=== PATIENT | male | born 1930 | race Caucasian/White ===

== ENCOUNTER 2016-09-03 07:00 | Inpatient (IN) | payer OTHER ==
[2016-09-03] MEDS ORDERED: fentaNYL 100 MCG/2 ML INJ IVP ONE ×3 (07:24→13:42)
--- NOTE | 2016-09-03 09:25 | EDPHY ---
H & P Stated Complaint: Mechanical fall. Thoracic back pain. 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 He states that he got up to use the bathroom and on the way back to his bedroom he fell backwards, landing on his back. He had the immediate onset of mid thoracic back pain. He was unable to get up off of the floor. He was able to pull himself along the floor until he could reach his emergency call button. He is not sure why he fell but he recalls falling. There was no loss of consciousness , no syncope per his report. He had a syncopal episode in June of 2016 and was admitted at that time. He denies headache, neck pain, numbness, weakness, loss of control of his bowels or his bladder. He does not have chest pain, does not feel short of breath, and has not had palpitations. He denies lower extremity swelling. He has no history of venous thromboembolism. REVIEW OF SYSTEMS: A ten point review of systems was performed and is negative with the exception of the items mentioned in the HPI. Source: Patient, Family Exam Limitations: No limitations - Medical/Surgical History Hx Asthma: No Hx Chronic Respiratory Disease: No Hx Diabetes: No Hx Cardiac Disease: No Hx Renal Disease: No Hx Cirrhosis: No Hx Alcoholism: No Hx HIV/AIDS: No Hx Splenectomy or Spleen Trauma: No Other PMH: 1. Prostate cancer in remission. 2. 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 3. Bilateral inguinal hernia repair. 4. Small bowel obstruction with bowel resection. 5. Glaucoma - Social History Smoking Status: Former smoker - Physical Exam Exam: General Appearance: Alert. Vital signs reviewed. Blood pressure 155/79, heart rate 53. Head: Normocephalic atraumatic. Eyes: Pupils equal and round, no conjunctival injection, no discharge. Anicteric. ENT, Mouth: Mucous membranes are moist, no oropharyngeal erythema or edema. Neck: No lymphadenopathy, supple. Respiratory: Lungs are clear to auscultation; no wheezes, rales, or rhonchi. Cardiovascular: Regular rate and rhythm; no murmur, rub, or gallop. Gastrointestinal: Abdomen is soft and nontender, no masses or organomegaly, bowel sounds normal. Skin: Warm and dry, no rashes on exposed skin, normal color. Back: Diffuse tenderness with palpation of the spine in its entirety. He localizes his pain as being between his scapulae I cannot elicit any pain in that region that is worse than pain elsewhere. No deformity or step-off. Extremities: No lower extremity edema, no calf tenderness or swelling. Neurological: Alert and oriented. Moving all four extremities easily and equally. Strength is 5/5 with testing of all major motor groups--however, right deltoid strength is somewhat limited due to pain (not new). I would rate his right deltoid strength is 4+ over 5. Sensation is intact to light touch over all 4 extremities. 2+ biceps and knee jerks bilaterally. Psychiatric: Normal affect. Constitutional: Initial Vital Signs Temperature (C) 36.5 C 09/03/16 07:10 Heart Rate 53 L 09/03/16 07:10 Respiratory Rate 16 09/03/16 07:10 Blood Pressure 155/79 H 09/03/16 07:10 O2 Sat (%) 97 09/03/16 07:10 O2 Delivery Mode Room Air Allergies/Adverse Reactions: bimatoprost [From Lumigan] Allergy (Verified 06/29/16 10:58) diatrizoate meglumine [From Gastrografin] Allergy (Verified 12/16/14 10:24) diatrizoate sodium [From Gastrografin] Allergy (Verified 12/16/14 10:24) iodine Allergy (Verified 12/16/14 10:24) Penicillins Allergy (Verified 11/21/14 18:59) Home Medications: Medication Instructions Recorded Ascorbic Acid [Vitamin C 500 mg 1,000 mg PO DAILY 05/14/16 (*)] Aspirin [Aspirin 81mg (*)] 81 mg PO HS 05/14/16 Brimonidine/Timolol [Combigan (*)] 1 drops EACHEYE QID 05/14/16 Carboxymethylcellulose 1% [Refresh 1 tod EACHEYE QID 05/14/16 Celluvisc (*)] Cholecalciferol Vit D3 [Vitamin D3 2,000 units PO DAILY 05/14/16 2000 units tab (OTC)] Docusate Sodium [Colace 100 MG (*)] 100 mg PO TID 05/14/16 Fluorometholone [Fml Forte] 1 drop LEFTEYE QID 05/14/16 Herbals/Supplements -Info Only 1 ea PO DAILY 05/14/16 LORazepam [Ativan (*)] 1 mg PO HS 05/14/16 Latanoprost 0.005% [Xalatan 0.005% 1 drops LEFTEYE HS 05/14/16 (*)] Ranitidine HCl [Zantac 75] 75 mg PO DAILY PRN 05/14/16 Simethicone 125 mg PO DAILY PRN 05/14/16 Vit C/Dl-E AC/Lut/Copper/Znox 1 each PO DAILY 05/14/16 [Preservision Softgel] Calcium Carb W/Vit D [Calcium Carb 1 each PO BID 06/29/16 W/Vit D 500/200 (*)] Acetaminophen [Tylenol ES 500 mg 500 mg PO ONCE PRN 09/03/16 (*)] Chlorpheniramine Maleate 4 mg PO DAILY PRN 09/03/16 [Aller-Chlor] Ofloxacin 0.3% [Ocuflox 0.3%] 1 drops LEFTEYE QID PRN 09/03/16 Phenylephrine HCl [Nasop] 10 mg PO DAILY PRN 09/03/16 Medical Decision Making - Diagnostics Imaging: Plain films of the thoracic spine show what appears to be an old T12 compression fracture and a T8 compression fracture that has not previously been seen. MRI scan of the thoracic spine reported to me by Dr. Nato Bal. It shows a T8 compression fracture, moderate. There is a small amount of retropulsion with mild stenosis. No epidural hematoma. The anterior and posterior cortex is involved. There is also an old T12 compression fracture visualized. ED Course/Re-evaluation: A 5-year-old male with remote history of prostate cancer who fell and reports midback pain. Plain film showed a T8 compression fracture, likely new, not seen on previous x-rays. There is a T12 compression fracture that has been seen previously. He was evaluated in the emergency department by the neurosurgery service. MRI scan is recommended. I think that this is reasonable in this setting of a fall with acute back pain. He has a history of prostate cancer and metastatic disease is a consideration. MRI scan shows a T8 compression fracture, acute. [employer] brace came to the emergency department and fitted him for a Romero brace. During his stay in the department he received IV fentanyl and ultimately IV Dilaudid but continued with significant pain. He was not able to comfortably wear the brace and sit up and I do not feel that he can return home until his pain is under better control. Based upon the history that I have obtained I do not think that he had a syncopal episode. He is being admitted to the hospitalist service. Differential Diagnosis: I considered a differential diagnosis that includes but is not limited to fracture (traumatic or pathologic), metastatic disease to the vertebra, thoracic or lumbar sprain, and back pain secondary to urinary tract infection. - Data Points Medications Given: Discontinued Medications Fentanyl (Sublimaze) 50 mcg IVP EDNOW ONE Stop: 09/03/16 07:25 Last Admin: 09/03/16 07:53 Dose: 50 mcg Fentanyl (Sublimaze) 50 mcg IVP ONCE ONE Stop: 09/03/16 10:29 Last Admin: 09/03/16 10:32 Dose: 50 mcg Fentanyl (Sublimaze) 50 mcg IVP ONCE ONE Stop: 09/03/16 13:43 Last Admin: 09/03/16 13:45 Dose: 50 mcg Hydromorphone HCl (Dilaudid) 0.5 mg IVP EDNOW ONE Stop: 09/03/16 14:26 Last Admin: 09/03/16 14:34 Dose: 0.5 mg Methocarbamol 500 mg/ Sodium (Chloride) 55 mls @ 240 mls/hr IVP ONCE ONE Stop: 09/03/16 10:35 Last Admin: 09/03/16 11:53 Dose: 55 mls Sodium Chloride (Ns) 500 mls @ 0 mls/hr IV ONCE ONE PRN Reason: Wide Open Stop: 09/03/16 12:51 Last Admin: 09/03/16 12:51 Dose: 500 mls Departure - Departure Disposition: [facility] Inpatient Acute Clinical Impression: Compression fracture of thoracic vertebra Qualifiers: Encounter type: initial encounter Fracture type: closed Qualifier Code: ( S22.000A) Wedge compression fracture of unspecified thoracic vertebra, initial encounter for closed fracture Condition: Good
--- NOTE | 2016-09-03 10:05 | DX ---
Thoracic Spine, Two Views Clinical Indications: Back pain, slipped today. Comparison: PA and lateral chest June 29, 2016, CT abdomen and pelvis May 14, 2016, CT chest July 25, 2015. Findings: A mild to moderate compression fracture at T8 with approximately 30% anterior height reduct ion is new since June 29, 2016. A mild to moderate compression fracture at T12 is unchanged since the comparisons. Rightward curvature of the midthoracic spine is stable. AP alignment is grossly norm al. A previously noted lung nodule is suboptimally characterized on this study. Impression: Mild to moderate T8 compression fracture, new since June 2016. Findings discussed with Griselda Sawant today at 0959 hours.
[2016-09-03] MEDS ORDERED: METHOCARBAMOL 500 MG in NS 50 ML IVP ONE (10:22)
[2016-09-03] MEDS ORDERED: fentaNYL 100 MCG/2 ML INJ ONE (10:26)
--- NOTE | 2016-09-03 12:13 | GCON ---
[f rep st] CONSULTATION REASON FOR CONSULTATION: Thoracic back pain, status post mechanical fall. The patient was seen in the ER with Dr. Richardson at approximately 10:20. HOSPITAL COURSE/MAJOR MEDICAL FINDINGS: The patient is an 85-year-old gentleman who had what sounds like a vasovagal event earlier today after he got up to use the bathroom, on his way back fell backwards, landing on his back. He does have a past medical history significant for prostate cancer, which was treated with radiation approximately 10 years ago, and history of pulmonary nodule showing cystic adenocarcinoma. In the emergency room, he is having some back pain but denies any arm numbness, tingling, pain or weakness. He does have a right rotator cuff tear. He does have some limited motion there, but that is pre-existing. The patient denies any loss of consciousness, any headache, nausea, vomiting, or dizziness. Denies any loss of bowel or bladder control. REVIEW OF SYSTEMS: Negative other than what is stated in the HPI. Please see for pertinent negatives and pertinent positives. PAST MEDICAL HISTORY: Significant for prostate cancer, status post radioactive seed placement. History of lung biopsy positive for cystic adenocarcinoma. Glaucoma. PAST SURGICAL HISTORY: Significant for hernia repair, cataract repair. SOCIAL HISTORY: The patient is present with his in the emergency room today. He is a former smoker. He does not drink any alcohol or use illicit drugs. ALLERGIES: Bimatoprost, Gastrografin, iodine and penicillin. MEDICATIONS: At home include Tylenol 500 mg 1 p.o. q.6 hours p.r.n. pain, vitamin C 1000 mg 1 p.o. daily, aspirin 81 mg 1 p.o. q.h.s., Combigan 1 drop to each eye b.i.d., Refresh eyedrops 1 drop to each eye 4 times daily, vitamin D 2000 units p.o. daily, Colace 100 mg 1 p.o. t.i.d., Forte eyedrops to left eye twice daily, Flonase 1 spray to each naris b.i.d., biotin mouthwash daily, Ativan mg 1 p.o. b.i.d., latanoprost eyedrops to left eye q.h.s., Zantac 75 mg 1 p.o. daily, simethicone 125 mg 1 p.o. p.r.n., multivitamin, Percocet 5/325 one to two tabs q.4 hours p.r.n. pain. FAMILY HISTORY: The patient does have a family history significant for melanoma. Denies any history of diabetes or heart disease. PHYSICAL EXAM: VITAL SIGNS: Temperature 36.5, heart rate 63, respiratory rate 16, blood pressure 155/79, he is 97% on room air. GENERAL: The patient is in no acute distress. NEUROLOGIC: Alert and oriented x3. Answers questions appropriately and his affect is appropriate for the given situation. Cranial nerves 2-12 are grossly intact. EOMI and PERRLA. The patient is 5/5 and equal in bilateral upper and bilateral lower extremities including his bilateral biceps, triceps, wrist flexors, extensors, iliopsoas, hamstrings, quadriceps, plantar flexion, dorsiflexion, EHL. His left deltoid is 5/5. His right deltoid is pain limited and is 4/5. DIAGNOSTIC REVIEW: The patient underwent a thoracic spine x-ray which demonstrated a [id number] T8 compression fracture that is new since June 2016. ASSESSMENT/PLAN: The patient is an 85-year-old gentleman who had a mechanical fall earlier today without loss of consciousness, who has thoracic pain and new x-rays demonstrate a new T8 compression fracture. Given the patient's history of prostate cancer, as well as his acute back pain, we will order a thoracic spine MRI to further evaluate the age of this fracture. Optimize pain management. I did discuss options with the patient regarding treatment for this, which would include bracing versus kyphoplasty depending on pain management and MRI results. If the patient has any change in neurologic or motor exam, please notify Neurosurgery. Patient was seen in the Emergency Room. /[id number]/MODL MTDD
[2016-09-03] MEDS ORDERED: NS 500 ML IV ONE (12:50)
--- NOTE | 2016-09-03 14:16 | MR ---
MRI Thoracic Spine, Without Contrast at 1107 Hours History: Fall, back pain, T8 compression fracture. Technique: Sagittal T1/T2/STIR and axial T1/T2-weighted MR series of the thoracic spine without contr ast. Findings: T8 vertebral body demonstrates bone marrow edema with moderate 50% loss of height and fract ure line extending through the anterior and posterior cortex consistent with an acute compression fra cture with minimal retropulsion resulting in minimal central canal stenosis. No epidural hematoma. No cord compression. The fracture does abut the ventral aspect of the cord without significant central canal stenosis. No neural foraminal stenosis. Mild old compression fracture superior endplate of T12 appears benign with 20% loss of height and gerri tral Schmorl node. No retropulsion. No additional acute compression fractures. No evidence of patholo gic compression fractures. Thoracic spinal cord demonstrates normal signal intensity without cord edema or myelomalacia. Multile henri mild degenerative disk disease thoracic spine without evidence of disk herniations, significant c entral canal stenosis, or neural foraminal stenosis. No epidural hematoma, paraspinal hematoma, or paraspinal fluid collection. Impressions 1. T8 vertebral body acute moderate, benign-appearing compression fracture with slight retropulsion r esulting in mild central canal stenosis. 2. No epidural hematoma, cord compression, cord edema, or additional acute compression fractures. 3. Old mild benign-appearing compression fracture superior endplate of T12 without stenosis or cord c ompression. 4. No thoracic disk herniations, significant central canal stenosis, or neural foraminal stenosis. 5. Consider DEXA bone scan evaluation for osteoporosis. Findings and recommendations discussed with Emergency Department physician, Dr. Griselda Sawant, at 120 0 hours today (September 03, 2016). Final report concurs with initial preliminary interpretation.
[2016-09-03] MEDS ORDERED: HYDROmorphONE/DILAUDID 1 MG/ML SYR IVP ONE (14:25)
[2016-09-03] MEDS ORDERED: HYDROmorphONE/DILAUDID 1 MG/ML SYR IVP PRN (14:32)
[2016-09-03] MEDS ORDERED: ONDANSETRON DISINTEGRATING 4 MG TAB PO PRN (14:32)
[2016-09-03] MEDS ORDERED: ONDANSETRON 4 MG/2 ML VIAL IVP PRN (14:32)
[2016-09-03] MEDS ORDERED: ACETAMINOPHEN 325 MG TAB PO PRN (14:32)
[2016-09-03] MEDS ORDERED: CHLORPHENIRAMINE MALEATE 4 MG TAB PO PRN (15:33)
[2016-09-03] MEDS ORDERED: NON-FORMULARY NEW DRUG (Ranitidine Hcl [Zantac 75] 75 MG) PO PRN (15:33)
[2016-09-03] MEDS ORDERED: OFLOXACIN 0.3% LEFTEYE PRN (15:33)
[2016-09-03] MEDS ORDERED: SIMETHICONE 125 MG PO PRN (15:33)
[2016-09-03] MEDS ORDERED: PHENYLEPHRINE HCL 10 MG PO PRN (15:33)
[2016-09-03] MEDS ORDERED: BRIMONIDINE EACHEYE SCH (16:00)
[2016-09-03] MEDS ORDERED: CARBOXYMETHYLCELLULOSE 1% 0.4 ML DROPERETTE EACHEYE SCH (16:00)
[2016-09-03] MEDS ORDERED: TIMOLOL EACHEYE SCH (16:00)
--- NOTE | 2016-09-03 16:09 | GHP ---
[f rep st] HISTORY AND PHYSICAL DATE OF ADMISSION: 09/03/2016 CHIEF COMPLAINT: Mechanical fall. HISTORY OF PRESENT ILLNESS: An 85-year-old male who presents after waking at approximately 4 in the morning, using the restroom, walking back to bed, and tripping with a mechanical fall. The patient r eports no preceding dizziness, palpitations, chest pain, shortness of breath, lightheadedness or diso rientation. The patient reports being in his normal state of health the evening before with a mild s tomach upset from a meal he had eaten. Otherwise, denied any changes in his bowel habits. Denied an y dysuria or hematuria. Denied any recent subjective fevers or chills, rashes or sick contacts. The patient had immediate complaints of back pain following the fall, and was brought in for evaluation to the emergency department. PAST MEDICAL HISTORY: 1. Prostate cancer. 2. Glaucoma. 3. History of small bowel obstruction. 4. History of bilateral inguinal hernia repair. 5. A pulmonary nodule showing cystic adenocarcinoma, being followed by Pulmonary. FAMILY HISTORY: Positive for melanoma in a brother. SOCIAL HISTORY: Patient lives independently. Does not smoke or use marijuana or illicit drugs. Dri nks a glass of wine in the evenings if his stomach is not upset. ADVANCED DIRECTIVES: Patient is full cor, full tube. His daughter would be his medical decision jalen er. REVIEW OF SYSTEMS: A 10-point review of systems is negative with the exception of that reported in t he HPI. PHYSICAL EXAMINATION: VITAL SIGNS: Blood pressure 165/84, heart rate 78, respiratory rate 15, 93% o n room air, 36.5. GENERAL: This is an elderly, thin male, lying flat in bed. HEENT: Notable for d ry mucous membranes. There is erythema periorbitally of the left eye. CARDIAC: Patient is regular rate and rhythm, quiet systolic murmur is appreciated. PULMONARY: Good respiratory effort. Clear t o auscultation bilaterally. GASTROINTESTINAL: Positive bowel sounds. ABDOMEN: Soft and nontender to palpation in all 4 quadrants. The patient is thin. MUSCULOSKELETAL: Negative for any lower extr emity edema. SKIN: Negative for any rashes. NEUROLOGIC: Patient is alert and oriented x3. PSYCHI ATRIC: He is pleasant and cooperative on interview and examination. DATA: Thoracic spine MRI shows a T8 vertebral body compression fracture described as acute with mild central canal stenosis. LABORATORY: White count 11.4, last checked June 2016. Renal function, creatinine 0.9 at that ti me. ASSESSMENT AND PLAN: This 85-year-old male presenting after a mechanical fall with thoracic compress ion fracture. 1. Acute T8 compression fracture. Patient was seen by Neurosurgery and fitted with a brace in the e mergency department. Pain is inadequately controlled at this time. Patient is unable to return home . He will be admitted for pain control with IV and oral pain medications and with therapy consultati on. Suspect as the patient lives independently and is 85, that he will require a short rehabilitatio n stay prior to returning home independently. Will work on titrating pain regimen that he can transi tion to orally at disposition. 2. Glaucoma. Patient has a very specific eye drop schedule, which will continue, allowing him to ta ke his own eye drops. 3. Elevated blood pressure. I believe this is secondary to pain. The patient is very uncomfortable on my examination. Will continue to follow after adequate pain control. 4. Prophylaxis with Lovenox. 5. Diet, regular. DISPOSITION: I expect greater than 2 midnights as patient is going to require titration of pain medi cations and physical therapy evaluation for recommendations related to rehabilitation. I have discus sed the case with the emergency room physician. The patient will be triaged to the medical-surgical floor for care. /[id number]/MODL
[2016-09-03 16:21] LABS: % IMMATURE GRANULYOCYTES 0.6 % (0.0-1.1); ABSOLUTE IMMATURE GRANULOCYTES 0.07 10^3/uL (0.00-0.10); ADD DIFF? NO; ADD MORPH? NO; ADD SCAN? NO; ATYPICAL LYMPHOCYTE FLAG 0 (0-99); FRAGMENT RBC FLAG 0 (0-99); HEMATOCRIT 37.1 % (40.0-51.0); HEMOGLOBIN 12.9 g/dL (13.7-17.5); LEFT SHIFT FLG 10 (0-99); LIPEMIA HEMOLYSIS FLAG 90 (0-99); MEAN CELL HEMOGLOBIN 33.6 pg (27.9-34.1); MEAN CELL HEMOGLOBIN CONCENTR. 34.8 g/dL (32.4-36.7); MEAN CELL VOLUME 96.6 fL (81.5-99.8); MEAN PLATELET VOLUME 8.6 fL (8.7-11.7); PLATELET CLUMPS FLAG 10 (0-99); PLATELET COUNT 231 10^3/uL (150-400); RED BLOOD CELL COUNT 3.84 10^6/uL (4.40-6.38); RED CELL DISTRIBUTION WIDTH 13.6 % (11.5-15.2)
[2016-09-03 16:36] LABS: ANION GAP 5 mEq/L (8-16); CALCIUM 8.8 mg/dL (8.5-10.4); CARBON DIOXIDE 29 mEq/l (22-31); CHLORIDE 103 mEq/L (97-110); CREATININE 0.8 mg/dL (0.7-1.3); GLOMERULAR FILTRATION RATE > 60; GLUCOSE 95 mg/dL (70-100); POTASSIUM 4.7 mEq/L (3.5-5.2); SODIUM 137 mEq/L (134-144)
[2016-09-03] MEDS ORDERED: SIMETHICONE 80 MG TAB CHEW PO PRN (16:41)
[2016-09-03] MEDS ORDERED: FAMOTIDINE 20 MG TAB PO PRN (16:41)
[2016-09-03] MEDS ORDERED: OFLOXACIN 0.3% 5ML OPHT DROPS LEFTEYE PRN (16:44)
[2016-09-03] MEDS: CARBOXYMETHYLCELLULOSE 0.5% 0.4 ML DROPERETTE EACHEYE SCH ×2 (18:07→21:56)
[2016-09-03] MEDS: OXYCODONE/APAP 5/325 TAB PO PRN (18:42)
[2016-09-03] MEDS: DOCUSATE SODIUM 100 MG CAP PO SCH ×2 (18:48→20:24)
[2016-09-03] MEDS: CALCIUM CARB W/VIT D 500 MG TAB PO SCH (20:24)
[2016-09-03] MEDS: ASPIRIN 81 MG CHEWABLE TAB PO SCH (20:24)
[2016-09-03] MEDS ORDERED: LATANOPROST 0.005% LEFTEYE SCH (21:00)
[2016-09-03] MEDS: LORazepam 1 MG TAB PO SCH (21:55)
[2016-09-03] MEDS: LATANOPROST 0.005% 2.5 ML OPHT DROPS LEFTEYE SCH (21:56)
[2016-09-03] MEDS: FLUOROMETHOLONE 0.1% LEFTEYE SCH (21:57)
[2016-09-03] MEDS: BRIMONIDINE/TIMOLOL 5 ML OPHT.BTL EACHEYE SCH (21:57)
[2016-09-03] MEDS: OPTH LEFTEYE SCH (21:57)
[2016-09-04] MEDS: OXYCODONE/APAP 5/325 TAB PO PRN ×5 (03:29→23:51)
[2016-09-04 05:49] LABS: % IMMATURE GRANULYOCYTES 0.5 % (0.0-1.1); ABSOLUTE IMMATURE GRANULOCYTES 0.06 10^3/uL (0.00-0.10); ADD DIFF? NO; ADD MORPH? NO; ADD SCAN? NO; ATYPICAL LYMPHOCYTE FLAG 0 (0-99); FRAGMENT RBC FLAG 0 (0-99); HEMATOCRIT 36.1 % (40.0-51.0); HEMOGLOBIN 12.3 g/dL (13.7-17.5); LEFT SHIFT FLG 40 (0-99); LIPEMIA HEMOLYSIS FLAG 90 (0-99); MEAN CELL HEMOGLOBIN 32.7 pg (27.9-34.1); MEAN CELL HEMOGLOBIN CONCENTR. 34.1 g/dL (32.4-36.7); MEAN PLATELET VOLUME 8.8 fL (8.7-11.7); PLATELET CLUMPS FLAG 10 (0-99); PLATELET COUNT 201 10^3/uL (150-400); RED BLOOD CELL COUNT 3.76 10^6/uL (4.40-6.38); RED CELL DISTRIBUTION WIDTH 13.5 % (11.5-15.2)
[2016-09-04 06:05] LABS: ANION GAP 6 mEq/L (8-16); CALCIUM 8.5 mg/dL (8.5-10.4); CARBON DIOXIDE 26 mEq/l (22-31); CHLORIDE 103 mEq/L (97-110); CREATININE 0.7 mg/dL (0.7-1.3); GLOMERULAR FILTRATION RATE > 60; GLUCOSE 106 mg/dL (70-100); POTASSIUM 4.2 mEq/L (3.5-5.2); SODIUM 135 mEq/L (134-144)
[2016-09-04] MEDS: ENOXAPARIN 40 MG/0.4 ML SYR SC SCH (08:11)
[2016-09-04] MEDS: CHOLECALCIFEROL VIT D3 2,000 UNITS TAB/CAP PO SCH (08:11)
[2016-09-04] MEDS: CALCIUM CARB W/VIT D 500 MG TAB PO SCH ×2 (08:11→21:32)
[2016-09-04] MEDS: DOCUSATE SODIUM 100 MG CAP PO SCH ×3 (08:11→21:32)
[2016-09-04] MEDS: ASCORBIC ACID 500 MG TAB PO SCH (08:12)
[2016-09-04] MEDS: PRESERVISION AREDS 2 EYE VITAMIN 1 EACH PO SCH (08:12)
[2016-09-04] MEDS: BRIMONIDINE/TIMOLOL 5 ML OPHT.BTL EACHEYE SCH ×2 (08:12→21:34)
--- NOTE | 2016-09-04 08:21 | SOAPPROG ---
SOAP Progress Note Assessment/Plan: Assessment: 85 yo M with T8 compression fracture Plan: stable and doing well overall jewit brace when OOB will check standing x-rays today with brace on please call with neuro changes discussed with Dr Richardson 09/04/16 08:19 Subjective: continued back pain, no leg pain, no rib/chest pain. Objective: Vital Signs Temp Pulse Resp BP Pulse Ox 36.8 C 67 18 135/67 H 94 09/04/16 07:51 09/04/16 07:51 09/04/16 07:51 09/04/16 07:51 09/04/16 07:51 Laboratory Results 09/04/16 05:36 09/04/16 05:36 09/03/16 09/04/16 09/05/16 05:59 05:59 05:59 Intake Total 725 Balance 725 AAOX4, +FC PERRL, EOMI, no facial droop ANDREE x4 + light touch ICD10 Worksheet Patient Problems: Problems Problem Status Diagnosed Thoracic compression fracture Acute Abdominal pain Acute Small bowel infarction Acute Syncope Acute
[2016-09-04] MEDS ORDERED: NON-FORMULARY NEW DRUG (Vit C/Dl-E Ac/Lut/Copper/Znox [Preservision Softgel] 1 EACH) PO SCH (09:00)
[2016-09-04] MEDS ORDERED: Herbals/Supplements -Info Only PO SCH (09:00)
[2016-09-04] MEDS: CARBOXYMETHYLCELLULOSE 0.5% 0.4 ML DROPERETTE EACHEYE SCH ×3 (12:04→21:34)
--- NOTE | 2016-09-04 13:12 | HOSPPROG ---
Hospitalist Progress Note Assessment/Plan: Patient is an 85-year-old male who sustained a mechanical fall. He had an MRI performed which showed an acute T8 compression fracture. Today is my 1st encounter with the patient. Chart reviewed. #. Acute T8 compression fracture - brace - awaiting consult from physical therapy and occupational therapy -concerned for him to place his brace on/ lives alone/is #. gait instability -recommending he use a urinal or commode rather than getting up during the night #. hypertension - blood pressure is 129/62 #. glaucoma - resumed home eyedrops Plan. patient will need to follow up with Dr. Machado in 6 weeks. Family is arranging for more care at home, Suleman doesn't want to go to SNF. Will arrange for home care PT and OT/ CM involved with helping arrange. Subjective: Suleman has no c/o pain/ feeling well. Objective: Vital Signs Temp Pulse Resp BP Pulse Ox 37 C 74 16 129/62 H 91 L 09/04/16 11:23 09/04/16 11:23 09/04/16 11:23 09/04/16 11:23 09/04/16 11:23 Laboratory Results 09/04/16 05:36 09/04/16 05:36 09/03/16 09/04/16 09/05/16 05:59 05:59 05:59 Intake Total 725 Balance 725 - Physical Exam Constitutional: no apparent distress, appears nourished, not in pain Eyes: PERRL Ears, Nose, Mouth, Throat: hearing normal Cardiovascular: regular rate and rhythym Respiratory: no respiratory distress Gastrointestinal: normoactive bowel sounds Skin: warm, normal color Musculoskeletal: generalized weakness Neurologic: AAOx3 Psychiatric: interacting appropriately, not anxious ICD10 Worksheet Patient Problems: Problems Problem Status Diagnosed Thoracic compression fracture Acute Abdominal pain Acute Small bowel infarction Acute Syncope Acute
--- NOTE | 2016-09-04 14:36 | DX ---
Thoracic spine AP and lateral 1234 hours. History: T8 fracture. Brace placed. Findings: Comparison to September 03, 2016. There has been interval progression of the moderate anterior wedge compression fracture that now luis ures about 50% (previously 25% compression). There is stable chronic anterior wedge compression fract ure superior endplate of T12. No new compressions are identified. There are no lytic or sclerotic oss eous lesions. Impression: 1. Interval increase in degree of compression of T8 vertebral body segment that now measures about 50 % (previously 25% compression). 2. Chronic anterior wedge compression fracture superior endplate of T12.
[2016-09-04] MEDS: ASPIRIN 81 MG CHEWABLE TAB PO SCH (21:32)
[2016-09-04] MEDS: LORazepam 1 MG TAB PO SCH (21:32)
[2016-09-04] MEDS: LATANOPROST 0.005% 2.5 ML OPHT DROPS LEFTEYE SCH (21:33)
[2016-09-05] MEDS: CARBOXYMETHYLCELLULOSE 0.5% 0.4 ML DROPERETTE EACHEYE SCH ×5 (05:37→21:11)
[2016-09-05 06:10] LABS: % IMMATURE GRANULYOCYTES 0.7 % (0.0-1.1); ABSOLUTE IMMATURE GRANULOCYTES 0.06 10^3/uL (0.00-0.10); ADD DIFF? NO; ADD MORPH? NO; ADD SCAN? NO; ATYPICAL LYMPHOCYTE FLAG 20 (0-99); FRAGMENT RBC FLAG 0 (0-99); HEMATOCRIT 34.4 % (40.0-51.0); HEMOGLOBIN 11.9 g/dL (13.7-17.5); LEFT SHIFT FLG 20 (0-99); LIPEMIA HEMOLYSIS FLAG 90 (0-99); MEAN CELL HEMOGLOBIN 33.1 pg (27.9-34.1); MEAN CELL HEMOGLOBIN CONCENTR. 34.6 g/dL (32.4-36.7); MEAN CELL VOLUME 95.6 fL (81.5-99.8); MEAN PLATELET VOLUME 8.8 fL (8.7-11.7); PLATELET CLUMPS FLAG 0 (0-99); PLATELET COUNT 208 10^3/uL (150-400); RED CELL DISTRIBUTION WIDTH 13.4 % (11.5-15.2)
[2016-09-05] MEDS: DOCUSATE SODIUM 100 MG CAP PO SCH ×3 (08:41→20:29)
[2016-09-05] MEDS: ENOXAPARIN 40 MG/0.4 ML SYR SC SCH (08:41)
[2016-09-05] MEDS: OXYCODONE/APAP 5/325 TAB PO PRN ×3 (08:41→20:28)
[2016-09-05] MEDS: PRESERVISION AREDS 2 EYE VITAMIN 1 EACH PO SCH ×2 (08:42→21:23)
[2016-09-05] MEDS: BRIMONIDINE/TIMOLOL 5 ML OPHT.BTL EACHEYE SCH ×2 (08:42→21:11)
[2016-09-05] MEDS: CHOLECALCIFEROL VIT D3 2,000 UNITS TAB/CAP PO SCH (08:42)
[2016-09-05] MEDS: OPTH LEFTEYE SCH (08:42)
[2016-09-05] MEDS: FLUOROMETHOLONE 0.1% LEFTEYE SCH (08:42)
[2016-09-05] MEDS: CALCIUM CARB W/VIT D 500 MG TAB PO SCH ×2 (08:42→20:29)
[2016-09-05] MEDS: ASCORBIC ACID 500 MG TAB PO SCH (08:42)
--- NOTE | 2016-09-05 14:44 | HOSPPROG ---
Hospitalist Progress Note Assessment/Plan: Patient is an 85-year-old male who sustained a mechanical fall. He had an MRI performed which showed an acute T8 compression fracture. #. Acute T8 compression fracture - brace -I think he will benefit from a SNF/ can't get brace on himself. He lives alone / is . #. gait instability -recommending he use a urinal or commode rather than getting up during the night #. hypertension - blood pressure is 129/72 #. glaucoma - resumed home eyedrops #. constipation -aggressive bowel protocol -get abdominal xray Plan. Will await for more info from PT and OT/ I think Suleman will benefit from rehab for strengthening and monitoring his strength Subjective: Suleman is c/o abominal discomfort and frustration w placing brace on. Objective: Vital Signs Temp Pulse Resp BP Pulse Ox 36.3 C 67 14 128/72 H 94 09/05/16 11:34 09/05/16 11:34 09/05/16 11:34 09/05/16 11:34 09/05/16 11:34 Laboratory Results 09/05/16 05:35 09/04/16 05:36 09/04/16 09/05/16 09/06/16 05:59 05:59 05:59 Intake Total 725 800 Output Total 100 Balance 725 700 - Physical Exam Constitutional: appears nourished, uncomfortable Eyes: PERRL, scleral injection (left eye) Ears, Nose, Mouth, Throat: hearing normal Cardiovascular: regular rate and rhythym Respiratory: no respiratory distress Gastrointestinal: normoactive bowel sounds, soft, non-tender abdomen Skin: warm Musculoskeletal: generalized weakness Neurologic: AAOx3 Psychiatric: interacting appropriately, not anxious ICD10 Worksheet Patient Problems: Problems Problem Status Diagnosed Thoracic compression fracture Acute Abdominal pain Acute Small bowel infarction Acute Syncope Acute
--- NOTE | 2016-09-05 16:58 | DX ---
Abdomen - Single View dated September 05, 2016 at 2:16 p.m. Indication: Abdominal pain and distention. Comparison: CT of the abdomen and pelvis dated May 14, 2016. Findings: Large volume of retained stool is present throughout the right hemicolon. A single isolated loop of small bowel in the left midabdomen has minimal gaseous distention measuring up to 3 cm. Brac hytherapy seeds in the prostate gland and surgical ligatures overlie the pelvis from previous hernia repair are unchanged. Impression: Constipation and equivocal focal adynamic ileus.
[2016-09-05] MEDS ORDERED: BISACODYL 10 MG SUPP PR ONE (17:18)
[2016-09-05] MEDS: ASPIRIN 81 MG CHEWABLE TAB PO SCH (20:28)
[2016-09-05] MEDS: LORazepam 1 MG TAB PO SCH (20:29)
[2016-09-05 21:10] VITALS: RESP 16
[2016-09-05] MEDS: LATANOPROST 0.005% 2.5 ML OPHT DROPS LEFTEYE SCH (21:11)
[2016-09-06] MEDS: OXYCODONE/APAP 5/325 TAB PO PRN ×3 (04:58→08:51)
[2016-09-06] MEDS: CARBOXYMETHYLCELLULOSE 0.5% 0.4 ML DROPERETTE EACHEYE SCH ×3 (05:23→13:16)
[2016-09-06 08:48] VITALS: BP 171/94; PULSE 75; TEMP 97.3; O2SAT 96
[2016-09-06] MEDS: BRIMONIDINE/TIMOLOL 5 ML OPHT.BTL EACHEYE SCH (08:50)
[2016-09-06] MEDS: ASCORBIC ACID 500 MG TAB PO SCH (08:50)
[2016-09-06] MEDS: DOCUSATE SODIUM 100 MG CAP PO SCH (08:51)
[2016-09-06] MEDS: CHOLECALCIFEROL VIT D3 2,000 UNITS TAB/CAP PO SCH (08:51)
[2016-09-06] MEDS: PRESERVISION AREDS 2 EYE VITAMIN 1 EACH PO SCH (08:51)
[2016-09-06] MEDS: ENOXAPARIN 40 MG/0.4 ML SYR SC SCH (08:52)
[2016-09-06] MEDS: CALCIUM CARB W/VIT D 500 MG TAB PO SCH (09:29)
--- NOTE | 2016-09-06 11:59 | HOSPPROG ---
Hospitalist Progress Note Assessment/Plan: Patient is an 85-year-old male who sustained a mechanical fall. He had an MRI performed which showed an acute T8 compression fracture. #. Acute T8 compression fracture - brace -will need a SNF #. gait instability -recommending he use a urinal or commode rather than getting up during the night #. hypertension - blood pressure is 171/94 #. glaucoma - resumed home eyedrops #. constipation -aggressive bowel protocol -get abdominal xray #. nausea -after getting pain meds Plan. If feeling better, less nausea, can go to SNF Subjective: Suleman is c/o nausea. says he took pain medication on an empty stomach this morning. Objective: Vital Signs Temp Pulse Resp BP Pulse Ox 36.3 C 75 16 171/94 H 96 09/06/16 08:00 09/06/16 08:00 09/06/16 08:00 09/06/16 08:00 09/06/16 08:00 Laboratory Results 09/05/16 05:35 09/04/16 05:36 09/05/16 09/06/16 09/07/16 05:59 05:59 05:59 Intake Total 800 250 Output Total 100 100 Balance 700 150 - Physical Exam Constitutional: uncomfortable Eyes: PERRL Ears, Nose, Mouth, Throat: hearing normal Cardiovascular: regular rate and rhythym Respiratory: no respiratory distress Gastrointestinal: normoactive bowel sounds, soft, non-tender abdomen Skin: warm Neurologic: AAOx3 Psychiatric: interacting appropriately, not anxious ICD10 Worksheet Patient Problems: Problems Problem Status Diagnosed Thoracic compression fracture Acute Abdominal pain Acute Small bowel infarction Acute Syncope Acute
[2016-09-06] MEDS ORDERED: IBUPROFEN 200 MG TAB PO PRN (12:00)
[2016-09-06] MEDS ORDERED: ACETAMINOPHEN 500 MG TAB PO SCH (12:00)
[2016-09-06] MEDS ORDERED: BISACODYL 10 MG SUPP PR PRN (12:01)
[2016-09-06] MEDS ORDERED: MAGNESIUM HYDROXIDE 30 ML UDCUP PO PRN (12:01)
[2016-09-06] MEDS ORDERED: LACTULOSE 20 GM/30 ML UDCUP PO PRN (12:01)
[2016-09-06] MEDS ORDERED: oxyCODONE IR 5 MG TAB PO PRN (12:01)
--- NOTE | 2016-09-06 12:21 | PDIAF ---
- Diagnosis Diagnosis: acute T8 compression fracture Code Status: Full Code - Medication Management Discharge Medications: Medications to Continue on Transfer Ascorbic Acid [Vitamin C 500 mg (*)] 1,000 mg PO DAILY 05/14/16 [Last Taken 05/11] Aspirin [Aspirin 81mg (*)] 81 mg PO HS 05/14/16 [Last Taken 09/02/16] Brimonidine/Timolol [Combigan (*)] 1 drops EACHEYE BID 05/14/16 [Last Taken 06/10] Cholecalciferol Vit D3 [Vitamin D3 2000 units tab (OTC)] 2,000 units PO DAILY [Last Taken 09/02/16] Docusate Sodium [Colace 100 MG (*)] 100 mg PO TID 05/14/16 [Last Taken 09/03/16] Fluorometholone [Fml Forte] 1 drop LEFTEYE Q48H 05/14/16 [Last Taken 09/03/16] Herbals/Supplements -Info Only 1 ea PO DAILY 05/14/16 [Last Taken 09/03/16] LORazepam [Ativan (*)] 1 mg PO HS 05/14/16 [Last Taken 09/02/16] Latanoprost 0.005% [Xalatan 0.005% (*)] 1 drops LEFTEYE HS 05/14/16 [Last Taken 09/02/16] Ranitidine HCl [Zantac 75] 75 mg PO DAILY PRN 05/14/16 [Last Taken Unknown] Simethicone 125 mg PO DAILY PRN 05/14/16 [Last Taken Unknown] Vit C/Dl-E AC/Lut/Copper/Znox [Preservision Softgel] 1 each PO BID 05/14/16 [ Last Taken 09/03/16] Calcium Carb W/Vit D [Calcium Carb W/Vit D 500/200 (*)] 1 each PO BID 06/29/16 [ Last Taken 09/02/16] Carboxymethylcellulose 0.5% [Refresh Plus Drops 0.5%] 1 drops EACHEYE QID [Last Taken Unknown] Chlorpheniramine Maleate [Aller-Chlor] 4 mg PO DAILY PRN 09/03/16 [Last Taken Unknown] Ofloxacin 0.3% [Ocuflox 0.3%] 1 drops LEFTEYE QID PRN 09/03/16 [Last Taken Unknown] Phenylephrine HCl [Nasop] 10 mg PO DAILY PRN 09/03/16 [Last Taken Unknown] Acetaminophen [Tylenol ES 500 mg (*)] 1,000 mg PO TID #0 tab 09/06/16 [Last Taken Unknown] Ibuprofen [Motrin (*)] 400 mg PO Q6HRS PRN #0 tab 09/06/16 [Last Taken Unknown] Ondansetron Odt [Zofran Odt 4 mg (*)] 4 mg PO Q4HRS PRN #0 tab 09/06/16 [Last Taken Unknown] Polyethylene Glycol 3350 [Miralax 17 gm (*)] 17 gm PO DAILY #0 pkt 09/06/16 [ Last Taken Unknown] oxyCODONE IR [Oxycodone Ir (*)] 5 mg PO Q4HRS PRN #0 tab 09/06/16 [Last Taken Unknown] Discharge Medications: Refer to the Discharge Home Medication list for PRN reason. - Orders Services needed: Physical Therapy, Occupational Therapy Diet Recommendation: no restrictions on diet Diet Texture: Regular Texture Diet Equipment: wear jewitt brace when oob Additional: Follow up with Dr Machado in 6 weeks for repeat back xrays/ phone # is [phone]. - Follow Up Care Current Providers and Referrals: Niall Machado MD [Medical Doctor] - (follow up in 6 weeks, call for appt) UDAY CASTRO [Primary Care Provider] -
[2016-09-06] MEDS ORDERED: SENNOSIDES/DOCUSATE SODIUM TAB PO SCH (21:00)
--- NOTE | 2016-09-07 03:45 | GDS ---
[f rep st] DISCHARGE SUMMARY DISCHARGE DIAGNOSES: 1. Acute T8 compression fracture. 2. Gait instability. 3. Hypertension. 4. Glaucoma. 5. Constipation. 6. Nausea. CONSULTATIONS: During his stay, Renee Dykes, physician teachers' assistant with neurosurgical services. BRIEF HISTORY: Mr. Ledezma is an 85-year-old male, who presented after tripping and falling. It was noted on admission that he had an acute T8 compression fracture. It was clearly a mechanical fall. He was admitted for further care. HOSPITAL COURSE: 1. Acute T8 compression fracture. He was seen by Neurosurgery, fitted with a brace in the emergency room. His pain was overall well controlled. The big issue was for him to be able to get the brace on and off. He will go to a assisted facility for rehabilitation. 2. Gait instability. Working with physical therapy and occupational therapy and doing well with thi s. 3. Hypertension. Suspect this has been elevated due to the pain. 4. Glaucoma. He resumed his eyedrops. 5. Constipation, resolved. 6. Nausea. He took a dose of oral pain medications this morning without food. This resolved this a fternoon. PENDING LABS AND TESTS: None. CONDITION AT DISCHARGE: Stable. Blood pressure is 171/94, heart rate is 75, respiratory rate is 16, O2 saturation on room air 96%, temperature is 36.3 Celsius. MEDICATIONS AT DISCHARGE: Please see the EMR. DISCHARGE INSTRUCTIONS: 1. To follow up with Dr. Richardson for repeat x-rays. 2. If he develops fever, chills, chest pain, or shortness of breath, return to the emergency room. 3. Stay on aggressive bowel protocol. Greater than 30 minutes discharging and coordinating care. /[id number]/MODL
[2016-09-07] MEDS ORDERED: POLYETHYLENE GLYCOL 3350 17 GM PKT PO SCH (09:00)
== END 2016-09-06 14:58 | DRG 552 ==
LOC: EDUNIT# → F3N 16:20
PROVIDERS: ADMIT Hospitalist; ATTEND Hospitalist
DX: S22.060A Wedge compression fracture of T7-T8 vertebra, initial encounter for closed fracture (principal); W06.XXXA Fall from bed, initial encounter; Y92.003 Bedroom of unspecified non-institutional (private) residence as the place of occurrence of the external cause; R26.9 Unspecified abnormalities of gait and mobility; H40.9 Unspecified glaucoma; K59.00 Constipation, unspecified; R11.0 Nausea; I10 Essential (primary) hypertension; C78.00 Secondary malignant neoplasm of unspecified lung; Z85.46 Personal history of malignant neoplasm of prostate; Z87.891 Personal history of nicotine dependence
CPT/HCPCS: 96374; 97116-GP; 97161-GP; 97166-GO; 97535-GO; G8978-GP-CI; G8979-GP-CI; G8984-GO-CI; G8985-GO-CI; J1170; J1650; J2800; J3010

== ENCOUNTER 2016-11-02 10:05 | Observation (INO) | payer OTHER ==
--- NOTE | 2016-11-02 10:06 | EDPHY ---
H & P Constitutional: Initial Vital Signs Temperature (C) 36.5 C 11/02/16 10:32 Heart Rate 71 11/02/16 10:32 Respiratory Rate 16 11/02/16 10:32 Blood Pressure 138/72 H 11/02/16 10:32 O2 Sat (%) 95 11/02/16 10:32 O2 Delivery Mode Room Air Allergies/Adverse Reactions: bimatoprost [From Lumigan] Allergy (Verified 06/29/16 10:58) diatrizoate meglumine [From Gastrografin] Allergy (Verified 12/16/14 10:24) diatrizoate sodium [From Gastrografin] Allergy (Verified 12/16/14 10:24) iodine Allergy (Verified 12/16/14 10:24) Penicillins Allergy (Verified 11/21/14 18:59) Home Medications: Medication Instructions Recorded Ascorbic Acid [Vitamin C 500 mg 1,000 mg PO DAILY 05/14/16 (*)] Aspirin [Aspirin 81mg (*)] 81 mg PO HS 05/14/16 Brimonidine/Timolol [Combigan (*)] 1 drops EACHEYE BID 05/14/16 Cholecalciferol Vit D3 [Vitamin D3 2,000 units PO DAILY 05/14/16 2000 units tab (OTC)] Docusate Sodium [Colace 100 MG (*)] 100 mg PO TID 05/14/16 Fluorometholone [Fml Forte] 1 drop LEFTEYE Q48H 05/14/16 Herbals/Supplements -Info Only 1 ea PO DAILY 05/14/16 LORazepam [Ativan (*)] 1 mg PO HS 05/14/16 Latanoprost 0.005% [Xalatan 0.005% 1 drops LEFTEYE HS 05/14/16 (*)] Ranitidine HCl [Zantac 75] 75 mg PO DAILY PRN 05/14/16 Simethicone 125 mg PO DAILY PRN 05/14/16 Vit C/Dl-E AC/Lut/Copper/Znox 1 each PO BID 05/14/16 [Preservision Softgel] Calcium Carb W/Vit D [Calcium Carb 1 each PO BID 06/29/16 W/Vit D 500/200 (*)] Carboxymethylcellulose 0.5% 1 drops EACHEYE QID 09/03/16 [Refresh Plus Drops 0.5%] Chlorpheniramine Maleate 4 mg PO DAILY PRN 09/03/16 [Aller-Chlor] Ofloxacin 0.3% [Ocuflox 0.3%] 1 drops LEFTEYE QID PRN 09/03/16 Phenylephrine HCl [Nasop] 10 mg PO DAILY PRN 09/03/16 Acetaminophen [Tylenol ES 500 mg 1,000 mg PO TID #0 tab 09/06/16 (*)] Ibuprofen [Motrin (*)] 400 mg PO Q6HRS PRN #0 tab 09/06/16 Ondansetron Odt [Zofran Odt 4 mg 4 mg PO Q4HRS PRN #0 tab 09/06/16 (*)] Polyethylene Glycol 3350 [Miralax 17 gm PO DAILY #0 pkt 09/06/16 17 gm (*)] oxyCODONE IR [Oxycodone Ir (*)] 5 mg PO Q4HRS PRN #0 tab 09/06/16 Medical Decision Making ED Course/Re-evaluation: CHIEF COMPLAINT: Syncope HISTORY OF PRESENT ILLNESS: The patient is an 85 y/o male arriving via EMS after a reported syncope. EMS reports he was sitting at the table drinking coffee and his daughter found him unconscious sitting in his chair. She was unable to rouse him and called 911. He has been alert and oriented for EMS throughout their contact. The patient reports previous episodes of vasovagal episodes. He says he had some mild abdominal pain last night and used a stool softner. Just prior to the syncope this morning, he felt like he needed to have a bowel movement, felt unsteady, and then lost consciousness. EMS also notes his BGL was 498 with no diagnosed history of diabetes. REVIEW OF SYSTEMS: A 10 point review of systems was performed and is negative with the exception of the elements mentioned in the history of present illness. PHYSICAL EXAM: HR, BP, O2 Sat, RR. Temp noted General Appearance: Alert, well hydrated, appropriate, and non-toxic appearing. Head: Atraumatic without scalp tenderness or obvious injury Eyes: Pupils equal, round, reactive to light and accommodation, EOMI, no trauma , no injection. Ears: Clear bilaterally, no perforation, normal landmarks Nose: Atraumatic, no rhinorrhea, clear. Throat: There is no erythema or exudates, no lesions, normal tonsils, mucus membranes moist. Neck: Supple, 2+ carotid upstroke, nontender, no lymphadenopathy. Respiratory: No retractions, no distress, no wheezes, and no accessory muscle use. Lungs are clear to auscultation bilaterally. Cardiovascular: Regular rate and rhythm, no murmurs, rubs, or gallops. Bilateral carotid, radial, dorsalis pedis, and posterior tibial pulses intact. Good capillary refill all extremities. Gastrointestinal: Abdomen is soft, nontender, non-distended, no masses, no rebound, no guarding, no peritoneal signs. Musculoskeletal: Normal active ROM of all extremities, atraumatic. Neurological: Alert, appropriate, and interactive. The patient has normal DTRs and non-focal cranial nerves, motor, sensory, and cerebellar exam. Skin: No rashes, good turgor, no nodules on palpation. 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 DIAGNOSTICS/PROCEDURES/CRITICAL CARE TIME: The 12 lead EKG was interpreted by myself. See hard copy and/or "tracemaster" electronic copy for interpretation. Study: Chest x-ray Indication: syncope Results: Chest x-ray was obtained. The results of the study are 1. Mild compression fracture of T10, new since August 2016. 2. Increased moderate to severe compression fracture at T8. 3. Stable mild T12 compression fracture. 4. Grossly stable left lower lobe nodule. The study was read by the radiologist, Dr. Arciniega. I viewed the images myself on the PACS system. DIFFERENTIAL DIAGNOSIS: The differential diagnosis for the patient's syncope included but was not limited to vasovagal syncope, arrhythmia, dehydration, cardiogenic causes, neurogenic causes, and blood loss. MEDICAL DECISION MAKING: This is an 85 y/o male presenting after an apparent syncope while sitting at his table this morning. He has a history of at least one previous syncope that was thought to be vasovagal last June. He notably had a prehospital BGL of almost 500. His exam is remarkable for an episode of bowel incontinence during the syncopal event. Plan for full syncope work up including EKG, labs, UA, and chest x-ray. 1155: Work up is unremarkable. Due to syncope while sitting, I recommended admission to the patient for further cardiac work up. He agrees with plan. Spoke with hospitalist service. Dr. Leung accepts admission for syncope. - Data Points Laboratory Results: Laboratory Results 11/02/16 10:10 11/02/16 10:10 11/02/16 11/02/16 10:10 10:10 WBC 9.54 10^3/uL H 10^3/uL (3.80-9.50) RBC 4.15 10^6/uL L 10^6/uL (4.40-6.38) Hgb 14.2 g/dL g/dL (13.7-17.5) Hct 40.4 % % (40.0-51.0) MCV 97.3 fL fL (81.5-99.8) MCH 34.2 pg H pg (27.9-34.1) MCHC 35.1 g/dL g/dL (32.4-36.7) RDW 14.0 % % (11.5-15.2) Plt Count 321 10^3/uL 10^3/uL (150-400) MPV 8.6 fL L fL (8.7-11.7) Neut % (Auto) 53.8 % % (39.3-74.2) Lymph % (Auto) 39.4 % % (15.0-45.0) [place] % (Auto) 4.9 % % (4.5-13.0) Eos % (Auto) 0.3 % L % (0.6-7.6) Baso % (Auto) 0.3 % % (0.3-1.7) Nucleat RBC Rel Count 0.0 % % (0.0-0.2) Absolute Neuts (auto) 5.13 10^3/uL 10^3/uL (1.70-6.50) Absolute Lymphs (auto) 3.76 10^3/uL H 10^3/uL (1.00-3.00) Absolute Monos (auto) 0.47 10^3/uL 10^3/uL (0.30-0.80) Absolute Eos (auto) 0.03 10^3/uL 10^3/uL (0.03-0.40) Absolute Basos (auto) 0.03 10^3/uL 10^3/uL (0.02-0.10) Absolute Nucleated RBC 0.00 10^3/uL 10^3/uL (0-0.01) Immature Gran % 1.3 % H % (0.0-1.1) Immature Gran # 0.12 10^3/uL H 10^3/uL (0.00-0.10) Sodium 133 mEq/L L mEq/L (134-144) Potassium 4.3 mEq/L mEq/L (3.5-5.2) Chloride 98 mEq/L mEq/L (97-110) Carbon Dioxide 27 mEq/l mEq/l (22-31) Anion Gap 8 mEq/L mEq/L (8-16) BUN 13 mg/dL mg/dL (7-23) Creatinine 0.9 mg/dL mg/dL (0.7-1.3) Estimated GFR > 60 Glucose 167 mg/dL H mg/dL (70-100) Calcium 9.2 mg/dL mg/dL (8.5-10.4) Magnesium 2.4 mg/dL H mg/dL (1.6-2.3) Troponin I 0.015 ng/mL ng/mL (0-0.034) NT-Pro-B Natriuret Pep 560 pg/mL H pg/mL (0-450) Medications Given: Discontinued Medications Sodium Chloride (Ns) 1,000 mls @ 0 mls/hr IV ONCE ONE PRN Reason: Wide Open Stop: 11/02/16 10:13 Last Admin: 11/02/16 10:28 Dose: 1,000 mls Departure - Departure Disposition: [facility] Acute Clinical Impression: Syncope Qualifiers: Syncope type: unspecified Qualified Code(s): R55 - Syncope and collapse Condition: Fair Referrals: UDAY CASTRO [Primary Care Provider] - As per Instructions Report Scribed for: Sky Licea Report Scribed by: Abril Trivedi Date of Report: 11/02/16 Time of Report: 10:07
[2016-11-02] MEDS ORDERED: NS 1,000 ML IV ONE (10:12)
--- NOTE | 2016-11-02 10:36 | CPEKG ---
Heart Rate: 69 RR Interval: 870 P-R Interval: 172 QRSD Interval: 86 QT Interval: 396 QTC Interval: 425 P [place]: 14 QRS [place]: 11 T Wave [place]: -23 EKG Severity - BORDERLINE ECG - EKG Impression: SINUS RHYTHM EKG Impression: LOW VOLTAGE IN FRONTAL LEADS EKG Impression: BORDERLINE T ABNORMALITIES, INFERIOR LEADS Electronically Signed By: Sky Licea 02-Nov-2016 14:51:44
[2016-11-02 10:42] LABS: % IMMATURE GRANULYOCYTES 1.3 % (0.0-1.1); ABSOLUTE IMMATURE GRANULOCYTES 0.12 10^3/uL (0.00-0.10); ADD DIFF? NO; ADD MORPH? NO; ADD SCAN? NO; ATYPICAL LYMPHOCYTE FLAG 0 (0-99); FRAGMENT RBC FLAG 0 (0-99); HEMATOCRIT 40.4 % (40.0-51.0); HEMOGLOBIN 14.2 g/dL (13.7-17.5); LEFT SHIFT FLG 10 (0-99); LIPEMIA HEMOLYSIS FLAG 90 (0-99); MEAN CELL HEMOGLOBIN 34.2 pg (27.9-34.1); MEAN CELL HEMOGLOBIN CONCENTR. 35.1 g/dL (32.4-36.7); MEAN CELL VOLUME 97.3 fL (81.5-99.8); MEAN PLATELET VOLUME 8.6 fL (8.7-11.7); PLATELET CLUMPS FLAG 0 (0-99); PLATELET COUNT 321 10^3/uL (150-400); RED BLOOD CELL COUNT 4.15 10^6/uL (4.40-6.38)
[2016-11-02 10:59] LABS: ANION GAP 8 mEq/L (8-16); CALCIUM 9.2 mg/dL (8.5-10.4); CARBON DIOXIDE 27 mEq/l (22-31); CHLORIDE 98 mEq/L (97-110); CREATININE 0.9 mg/dL (0.7-1.3); GLOMERULAR FILTRATION RATE > 60; GLUCOSE 167 mg/dL (70-100); MAGNESIUM 2.4 mg/dL (1.6-2.3); POTASSIUM 4.3 mEq/L (3.5-5.2); SODIUM 133 mEq/L (134-144)
[2016-11-02 11:09] LABS: TROPONIN I 0.015 ng/mL (0-0.034)
[2016-11-02] MEDS ORDERED: ONDANSETRON DISINTEGRATING 4 MG TAB PO PRN (13:48)
[2016-11-02] MEDS ORDERED: ACETAMINOPHEN 325 MG TAB PO PRN (13:48)
[2016-11-02] MEDS ORDERED: PHENYLEPHRINE HCL 10 MG PO PRN (13:50)
[2016-11-02] MEDS ORDERED: CHLORPHENIRAMINE MALEATE 4 MG TAB PO PRN (13:50)
[2016-11-02] MEDS ORDERED: FLUOROMETHOLONE LEFTEYE SCH (14:00)
[2016-11-02] MEDS ORDERED: SIMETHICONE 80 MG TAB CHEW PO PRN (14:30)
--- NOTE | 2016-11-02 14:34 | GHP ---
[f rep st] HISTORY AND PHYSICAL DATE OF ADMISSION: 11/02/2016 CHIEF COMPLAINT: Syncope. HISTORY OF PRESENT ILLNESS: An 85-year-old man, presents with syncope. He had an episode about 4 m onths ago, which was thought to be vasovagal. At that point, however, his troponin became indetermi rufina, however, he elected to pursue no further workup. For this episode, he was sitting, eating breakfast. He felt a little "fuzzy." His daughter was wit h him. She is not present for my interview, however, I believe that he slumped forward. She was tr cece to shake him for a short period of time and then he arouse. He did not notice any preceding ch est pain, shortness of breath, nausea, vomiting. He did lose control of his bowels after the episod e, which is abnormal for him. He did not have any seizure activity however. He is quite concerned about not wanting to have too many medical interventions done, and feels that he would like to lean overall toward less aggressive care. PAST MEDICAL/SURGICAL HISTORY: 1. Prostate cancer. 2. Glaucoma. 3. History of small-bowel obstruction. 4. History of bilateral inguinal hernia. 5. Pulmonary nodule, being followed by pulmonary. 6. Recent fall with compression fractures. MEDICATIONS: Please see medication reconciliation. ALLERGIES: Bimatoprost, diatrizoate, iodine, penicillins. FAMILY HISTORY: Positive for melanoma in his mother. SOCIAL HISTORY: Lives independently. Does not smoke or use illegal drugs. He will occasionally dr ink a glass in the evening. REVIEW OF SYSTEMS: A 10-point review of systems is conducted and is negative except per HPI. PHYSICAL EXAM: VITAL SIGNS: Blood pressure is 112/76, heart rate 70, respiration rate 16, saturati ng 98% on room air, temperature 36.5. GENERAL: The patient is a pleasant man, who appears comforta ble, in no acute distress. HEENT: Shows him to be normocephalic, atraumatic. CARDIOVASCULAR: Rev eals a regular rate and rhythm. There is no murmurs, rubs or gallops. PULMONARY: Shows him to be in no respiratory distress. His lungs are clear to auscultation bilaterally. ABDOMINAL: Soft, non tender, nondistended. SKIN: Shows no rash. : Shows no [place]. NEUROLOGIC: Shows him to be landen rt and oriented x3. He is moving all extremities. PSYCHIATRIC: Shows normal mood and affect. LABS: White count is 9.5, hemoglobin is 14. Sodium 133, magnesium is 2.4. Troponin 0.015. BNP is 560. DATA: 1. I reviewed his chart. 2. I personally viewed and interpreted his ECG, this shows sinus rhythm. I do not see anything ove rtly ischemic. 3. Chest x-ray shows evidence of compression fractures, but nothing acute cardiothoracically. IMPRESSION AND PLAN: An 85-year-old male with syncope. 1. Syncope: Differential includes cardiac ischemia, arrhythmia, other structural abnormality, poss ible seizure-type activity, though he had no clear overt seizure activity. He does not want to be v rsiram aggressive with his medical care. Specifically, he is declining a stress test. We will order a n echocardiogram, monitor him on telemetry, trend his troponins. Based on these findings, we will d ecide what the next step is. He is actually anxious to be discharged tomorrow morning. 2. Dry mouth: This is a large complaint of his. I note that he is on chlorpheniramine, however, carmen huynh takes this infrequently. He is being treated for this with Evoxac. We will continue this for now . 3. Depression: Zoloft. 4. Recent compression fractures: He is not on any narcotics. We will continue Tylenol p.r.n. 5. Mild hyponatremia: Recheck in the morning. 6. Code status is do not resuscitate. 7. Venous thromboembolism risk is high, we will give him Lovenox. /[id number]/MODL
[2016-11-02] MEDS ORDERED: CARBOXYMETHYLCELLULOSE 0.5% 0.4 ML DROPERETTE EACHEYE SCH (16:00)
--- NOTE | 2016-11-02 17:16 | ECHO ---
[id number] + + [address] : : [place] [address] : : [phone] + Adult Echocardiographic Report + ------+ :Name: DION JIMENEZ LStudy Date: 11/02/2016 01:47 PM : : Hospital Admission Number: [id number] Locatio n: 213: :: 1930 Gender: Male Height: 63 in : :Age: 85 yrs Race: WH Weight: 125 lb : :Reason For Study: Syncope : : BSA: 1.6 meters 2 : :History: No previous : + ------+ MMode/2D Measurements \T\ Calculations IVSd: 1.8 cm RVDd: 3.0 cm FS: 34.3 % LVOT diam: 2.0 cm LVPWd: 1.0 cm LVIDd: 2.7 cm EDV(Teich): LVOT area: LVIDs: 1.8 cm 27.7 ml 3.2 cm2 ESV(Teich): 9.6 ml EF(Teich): 65.3 % LVLd ap4: 6.1 cm SV(MOD-sp4): EDV(MOD-sp4): 31.0 ml 39.0 ml LVLs ap4: 4.8 cm ESV(MOD-sp4): 8.0 ml EF(MOD-sp4): 79.5 % Normal Measurement Values: + + :LVIDd (3.5-5.7cm) IVSd (0.6-1.1cm) LVPWd (0.6-1.1cm) Aortic Root (2.0-3.7cm)Left Atrium (1.5-4.0cm): :LV Vol(d) (76-115ml) LV Vol(s) (29-48ml) Ejec Fraction (50-65%)PV Dorian (0.6- 1.2m/s) TV Dorian (0.4-1.0m/s) : :MV E Dorian (0.8-1.0m/s)MV A Dorian (0.3-1.0m/s)LVOT Dorian (0.7-1.2m/s) Asc Ao Dorian ( 0.9-1.8m/s) : + + Doppler Measurements \T\ Calculations MV E max dorian: MV V2 max: Ao V2 max: LV V1 mean P.2 cm/sec 109.2 cm/sec 105.1 cm/sec 2.1 mmHg MV A max dorian: MV max PG: Ao max PG: LV V1 mean: 100.2 cm/sec 4.8 mmHg 4.4 mmHg 64.9 cm/sec MV E/A: 0.65 MV V2 mean: Ao mean PG: LV V1 VTI: 21.7 cm MV dec time: 63.8 cm/sec 2.9 mmHg 0.30 sec MV mean PG: Ao V2 mean: 1.8 mmHg 79.2 cm/sec MV V2 VTI: 29.0 cmAo V2 VTI: 27.6 cm MVA(VTI): 2.4 cm2 DASHA(I,D): 2.5 cm2 SV(LVOT): 68.7 ml PA V2 max: TR max dorian: Pulm Sys Dorian: 88.6 cm/sec 280.7 cm/sec 70.1 cm/sec PA max PG: TR max PG: Pulm Max Dorian: 3.4 mmHg 31.5 mmHg 34.6 cm/sec RAP systole: Pulm S/D: 2.0 10.0 mmHg RVSP(TR): 41.5 mmHg Left Ventricle The left ventricle is normal in size. Proximal septal thickening is noted. 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 Ejection Fraction = 70-75%. The left ventricle is hyperdynamic. There is Doppler evidence for diastolic dysfunction. No regional wall motion abnormalities noted. Right Ventricle The right ventricle is normal in size and function. TAPSE Normal: 2.2 cm. Atria The left atrial size is normal. Right atrial size is normal. The interatrial septum is intact with no evidence for an atrial septal defect. Mitral Valve The mitral valve leaflets appear thickened, but open well. There is moderate mitral annular calcification. No systolic anterior motion of the mitral valve. There is no mitral valve stenosis. There is trace to mild mitral regurgitation. Tricuspid Valve The tricuspid valve is normal in structure and function. There is moderate tricuspid regurgitation. Right ventricular systolic pressure is 41.5mmHg. There is Doppler evidence for moderate pulmonary hypertension. Aortic Valve The aortic valve is normal in structure and function. There is no aortic stenosis. Mild aortic regurgitation. Pulmonic Valve The pulmonic valve is not well visualized. There is no pulmonic valvular stenosis. There is no pulmonic valvular regurgitation. Great Vessels The aortic root is not well visualized but is probably normal size. Pericardium/Pleural There is a fat pad seen. There is no pericardial effusion. There is no pleural effusion. Conclusion A complete two-dimensional transthoracic echocardiogram was performed (2D, M-mode, Doppler and color flow Doppler). Poor Parasternal windows. The left ventricle is normal in size. Ejection Fraction = 70-75%. There is trace to mild mitral regurgitation. There is moderate tricuspid regurgitation. Right ventricular systolic pressure is 41.5mmHg. The aortic valve is normal in structure and function. The aortic root is not well visualized but is probably normal size. There is Doppler evidence for moderate pulmonary hypertension. Mild aortic regurgitation. There is no pleural effusion. The right ventricle is normal in size and function. Final Reading Physician: Manny Kevin electronically signed on 11/02/2016 05:15 PM Ordering Physician: Eze Leung Performed By: Dolores Esteban
[2016-11-02] MEDS: Cevimeline Hcl [Evoxac] 30 MG PO SCH ×2 (17:19→20:43)
[2016-11-02] MEDS: DOCUSATE SODIUM 100 MG CAP PO SCH ×2 (17:20→20:40)
[2016-11-02] MEDS: CARBOXYMETHYLCELLULOSE 0.5% 0.4 ML DROPERETTE EACHEYE SCH ×2 (17:56→20:41)
[2016-11-02] MEDS: BRIMONIDINE/TIMOLOL 5 ML OPHT.BTL EACHEYE SCH (20:35)
[2016-11-02 20:38] LABS: COLOR YELLOW; LEUKOCYTE ESTERASE,URINE NEGATIVE (NEGATIVE); NITRITE,URINE NEGATIVE (NEGATIVE)
[2016-11-02] MEDS: PRESERVISION AREDS2 FORMULA EYE VIT 1 EACH PO SCH (20:46)
[2016-11-02] MEDS ORDERED: LATANOPROST 0.005% 2.5 ML OPHT DROPS LEFTEYE SCH (21:00)
[2016-11-02] MEDS ORDERED: ASPIRIN 81 MG CHEWABLE TAB PO SCH (21:00)
[2016-11-02] MEDS ORDERED: LORazepam 1 MG TAB PO SCH (21:00)
[2016-11-02] MEDS ORDERED: FAMOTIDINE 20 MG TAB PO PRN (21:00)
[2016-11-03 00:16] VITALS: RESP 16
[2016-11-03 04:33] VITALS: TEMP 97.6
[2016-11-03 05:55] LABS: % IMMATURE GRANULYOCYTES 0.7 % (0.0-1.1); ABSOLUTE IMMATURE GRANULOCYTES 0.08 10^3/uL (0.00-0.10); ADD DIFF? NO; ADD MORPH? NO; ADD SCAN? NO; ATYPICAL LYMPHOCYTE FLAG 0 (0-99); FRAGMENT RBC FLAG 0 (0-99); HEMATOCRIT 34.3 % (40.0-51.0); LEFT SHIFT FLG 0 (0-99); LIPEMIA HEMOLYSIS FLAG 90 (0-99); MEAN CELL HEMOGLOBIN 34.4 pg (27.9-34.1); MEAN CELL VOLUME 98.3 fL (81.5-99.8); MEAN PLATELET VOLUME 8.8 fL (8.7-11.7); PLATELET CLUMPS FLAG 0 (0-99); PLATELET COUNT 262 10^3/uL (150-400); RED BLOOD CELL COUNT 3.49 10^6/uL (4.40-6.38); RED CELL DISTRIBUTION WIDTH 14.4 % (11.5-15.2)
[2016-11-03 06:18] LABS: ALANINE AMINOTRANSFERASE 33 IU/L (21-72); ALBUMIN 3.1 g/dL (3.5-5.0); ALKALINE PHOSPHATASE 125 IU/L (38-126); ANION GAP 8 mEq/L (8-16); ASPARTATE AMINOTRANSFERASE 19 IU/L (17-59); BILIRUBIN,TOTAL 0.4 mg/dL (0.1-1.4); CALCIUM 8.7 mg/dL (8.5-10.4); CARBON DIOXIDE 21 mEq/l (22-31); CHLORIDE 104 mEq/L (97-110); CREATININE 0.9 mg/dL (0.7-1.3); GLOMERULAR FILTRATION RATE > 60; GLUCOSE 97 mg/dL (70-100); POTASSIUM 4.2 mEq/L (3.5-5.2); SODIUM 133 mEq/L (134-144); TOTAL PROTEIN 5.5 g/dL (6.3-8.2)
[2016-11-03] MEDS: CARBOXYMETHYLCELLULOSE 0.5% 0.4 ML DROPERETTE EACHEYE SCH ×2 (06:43→13:59)
[2016-11-03] MEDS: BRIMONIDINE/TIMOLOL 5 ML OPHT.BTL EACHEYE SCH (08:13)
[2016-11-03] MEDS: PRESERVISION AREDS2 FORMULA EYE VIT 1 EACH PO SCH (08:15)
[2016-11-03] MEDS: DOCUSATE SODIUM 100 MG CAP PO SCH (08:16)
[2016-11-03] MEDS ORDERED: PANTOPRAZOLE SODIUM 40 MG TAB PO SCH (09:00)
[2016-11-03] MEDS ORDERED: TAMSULOSIN HCL 0.4 MG CAP PO SCH (09:00)
[2016-11-03] MEDS ORDERED: SERTRALINE HCL 25 MG TAB PO SCH (09:00)
[2016-11-03] MEDS ORDERED: ENOXAPARIN 40 MG/0.4 ML SYR SC SCH (09:00)
[2016-11-03] MEDS ORDERED: METOPROLOL TARTRATE 25 MG TAB PO SCH (10:00)
[2016-11-03] MEDS: Cevimeline Hcl [Evoxac] 30 MG PO SCH (10:55)
[2016-11-03 11:15] VITALS: BP 142/71; PULSE 70; O2SAT 91
--- NOTE | 2016-11-03 11:22 | GDS ---
[f rep st] DISCHARGE SUMMARY CHIEF COMPLAINT: Syncope. HISTORY OF PRESENT ILLNESS: This is an 85-year-old man, who presented with syncope. He has had a f ew episodes of this. He is overall leaning towards nonaggressive, noninterventional care. 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 Tropo nins remained normal. He was offered a stress test however, he declined. He did agree to see Dr. Tabitha lang. Dr. Araiza feels that this is most likely a dysrhythmia causing this with possible pauses. He is clear that he would not want a pacemaker, does not want an implanted monitoring device. He erickson s been told that this may and will likely recur, may lead to his , or other disability if he fa lls and harms himself. He understands this. He has the full capacity to make this decision. He will be discharged to home in the above condition. /[id number]/MODL
--- NOTE | 2016-11-03 22:42 | GCON ---
[f rep st] CONSULTATION CARDIOLOGY CONSULTATION AND HIGH-LEVEL FOLLOWUP VISIT. 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 Approximately 6 months ago, he had an episode of syncope while at the dinner table, then in August experienced a fall when he was practicing a turning move that was taught to him by physical therapy at approximately 4 a.m. in the morning. He fell suffering a compression fracture of his thoracic spine. This morning, he was in his usual state of health with some decline in his quality of life related t o his recent fall and thoracic spine injury, and was eating his breakfast when he was witnessed by h is daughter to have a sudden episode of loss of consciousness. The patient experience that "as an e pisode of champion out or just gradually fading away." He did not experience a sensation of rapid heart beat, chest pain or shortness of breath, and just felt like he faded into blackness, and then woke u p spontaneously. His daughter obviously brought him to the hospital for further evaluation. At the time my evaluation, the patient denied chest pain, shortness of breath, nausea, vomiting, or dizzin ess. He was in normal sinus rhythm throughout the evening, and the only abnormalities noted on his telemetry are explained by rapid arm motion when he was brushing his teeth around 9 p.m. last night and again this morning. There has been no significant tachy or bradydysrhythmia. The patient is not on medications that would likely slow his heart rate or cause other problems with his cardiac rhythm. His resting EKG does not reveal significant tachy or dmitri dysrhythmia. PHYSICAL EXAMINATION: His examination is unremarkable other than he is an elderly man who is somewh at frail. HEART: He does not have a significant murmur, rub, or gallop sound. I did not appreciat e a carotid bruit on examination or reduced carotid pulses. IMPRESSION AND PLAN: The patient has recurrent syncope that is most likely secondary to bradycardia or some form of tachy dysrhythmia. I think it would be in his best interest if he wanted this to b e treated to receive a link IQ device or loop recorder/implantable event recorder that could capture his cardiac rhythm during 1 of these relatively infrequent episodes. When I explained to the patie nt that if we identified a very slow heart rate during 1 of these symptomatic episodes of syncope, carmen huynh may benefit from a pacemaker. He stated that he in no means wanted to have a pacemaker and that a t his age of 85, he did not anticipate his quality of life improving at all, and it was his preferen ce that he not receive any invasive treatment including cardiac catheterization, a link IQ monitor, any assessment of his cardiac function including for coronary obstruction or cardiac rhythm disturba nce, as he would not except a pacemaker or defibrillator should those be necessary on the basis of t hat outcome. Given his opinion, and the fact that he seems to be of very sound mind and has thought about end of life issues quite a bit and wishes to be DNR, I would certainly respect his wishes, and I would, the refore, not recommend any form of invasive evaluation at the present time. He has decided to think about my recommendations and thought process, and if he changes his mind he will contact our office, and we will set some of these tests up as an outpatient. /[id number]/MODL
[2016-11-04] MEDS ORDERED: NON-FORMULARY NEW DRUG (Omeprazole [Omeprazole] 40 MG) PO SCH (09:00)
[2016-11-04] MEDS ORDERED: PANTOPRAZOLE SODIUM 40 MG TAB PO SCH (09:00)
== END 2016-11-03 14:45 | disposition home or self-care (01) ==
LOC: EDBD → EDUNIT# → F2W 13:11
PROVIDERS: ADMIT Student in an Organized Health Care Education/Training Program; ATTEND Student in an Organized Health Care Education/Training Program
DX: R55 Syncope and collapse (principal); R68.2 Dry mouth, unspecified; R91.1 Solitary pulmonary nodule; F32.9 Major depressive disorder, single episode, unspecified; S22.070D Wedge compression fracture of T9-T10 vertebra, subsequent encounter for fracture with routine healing; W01.198D Fall on same level from slipping, tripping and stumbling with subsequent striking against other object, subsequent encounter; H40.9 Unspecified glaucoma; Z88.0 Allergy status to penicillin; Z85.46 Personal history of malignant neoplasm of prostate; Z66 Do not resuscitate
CPT/HCPCS: 71020; 93005; 93306; 97165; G0378; G8987; G8988; G8989; J1650

== ENCOUNTER → 2016-12-17 | Outpatient (CLI) | payer OTHER | LOC: FIMAGING 13:55 | PROVIDERS: ATTEND Family Medicine | DX: I65.23 Occlusion and stenosis of bilateral carotid arteries (principal) ==

== ENCOUNTER 2016-12-21 20:18 | Inpatient (IN) | payer OTHER ==
--- NOTE | 2016-12-21 20:40 | EDPHY ---
H & P Time Seen by Provider: 12/21/16 20:34 HPI/ROS: Chief complaint. Back pain HPI. 85-year-old male with left back pain that has been bothering him off and on for the past couple weeks but much worse tonight. Spasms below the left scapula. In August he fell and had a T8 compression fracture was admitted for pain control. Patient has also been having syncopal episodes over the past 2 weeks. The pain in the left scapula described as spasm and sharp. No anterior chest discomfort or trouble breathing. No recent injury. His pain is worse with movement and deep breathing. No fever. Some chronic cough that is unchanged. Last syncopal episode was apparently 4 days ago while sitting at the breakfast table. Patient does not recall feeling lightheaded. He lives by himself and so his syncopal episode was unwitnessed. No unusual leg pain or swelling ROS Constitutional. no fever/chills, no weakness Eyes. no problems with vision ENT. no sore throat, no nasal drainage Cardiovascular. no chest pain Respiratory. no shortness of breath, no cough Abdominal. no abdominal pain, no nausea/vomiting, no diarrhea . no problems urinating MS. Left posterior back pain Skin. no rash Lymph. no swollen glands Neuro. Syncope Past Medical/Surgical History: Past medical history T8 compression fracture, prostate cancer, glaucoma, small- bowel obstruction, hernia, adenocarcinoma the long Social History: , lives by self, nonsmoker, no alcohol Smoking Status: Former smoker Physical Exam: General Appearance: Alert well-developed male moderate distress vital signs significant for an elevated blood pressure of approximately 206/108 Eyes: Pupils equal and round no pallor or injection. ENT, Mouth: Mucous membranes are moist. Respiratory: There are no retractions, lungs are clear to auscultation. Cardiovascular: Regular rate and rhythm. Gastrointestinal: Abdomen is soft and nontender, no masses, bowel sounds normal. Neurological: Awake and alert, sensory and motor exams grossly normal. Skin: Warm and dry, no rashes. Musculoskeletal: No tenderness over the cervical or thoracic spine. Patient has pain to palpation just lateral to approximately T8. No surface trauma. Extremities symmetrical, full range of motion. Psychiatric: Patient is oriented X 3, there is no agitation. Constitutional: Initial Vital Signs Temperature (C) 36.7 C 12/21/16 21:05 Heart Rate 71 12/21/16 21:05 Respiratory Rate 19 12/21/16 21:05 Blood Pressure 206/108 H 12/21/16 21:05 O2 Sat (%) 97 12/21/16 21:05 O2 Delivery Mode Nasal Cannula O2 (L/minute) 2 Allergies/Adverse Reactions: bimatoprost [From Lumigan] Allergy (Verified 11/02/16 13:37) Other-Enter Comments diatrizoate meglumine [From Gastrografin] Allergy (Verified 12/16/14 10:24) diatrizoate sodium [From Gastrografin] Allergy (Verified 12/16/14 10:24) iodine Allergy (Verified 11/02/16 13:37) Swelling/neck,face,throat Penicillins Allergy (Verified 11/02/16 13:37) Rash Home Medications: Medication Instructions Recorded Aspirin [Aspirin 81mg (*)] 81 mg PO HS 05/14/16 Brimonidine/Timolol [Combigan (*)] 1 drops EACHEYE BID 05/14/16 Docusate Sodium [Colace 100 MG (*)] 100 mg PO TID 05/14/16 Herbals/Supplements -Info Only 1 ea PO DAILY 05/14/16 Ranitidine HCl [Zantac 75] 75 mg PO DAILY PRN 05/14/16 Carboxymethylcellulose 0.5% 1 drops EACHEYE QID 09/03/16 [Refresh Plus Drops 0.5%] Chlorpheniramine Maleate 4 mg PO DAILY PRN 09/03/16 [Aller-Chlor] Acetaminophen [Tylenol ES 500 mg 1,000 mg PO QID PRN 11/02/16 (*)] C/E/Zn/Cu/OM3/DHA/EPA/LUT/ZEAX 1 each PO BID 11/02/16 [Preservision Areds 2 Softgel] Omeprazole 40 mg PO DAILY16 11/02/16 Sertraline HCl [Zoloft 25mg (*)] 25 mg PO DAILY 11/02/16 Tamsulosin HCl [Flomax 0.4 MG (*)] 0.4 mg PO HS 11/02/16 Fluorometholone [Fml Forte] 1 drop LEFTEYE Q48H 11/03/16 LORazepam [Ativan (*)] 1 mg PO HS tab 11/03/16 Latanoprost 0.005% [Xalatan 0.005% 1 drops LEFTEYE HS opht.btl 11/03/16 (*)] Cevimeline HCl [Evoxac] 30 mg PO TID 12/21/16 Lact Cmb2/S.thermophl/Bif Cmb1 1 each PO 1200 12/21/16 [Vsl#3 Cap (*)] Medical Decision Making - Diagnostics EKG Interpretation: EKG interpreted by me shows normal sinus rhythm normal interval and axis. QRS is normal there is no significant ST elevation or depression. There is no arrhythmia. The rate is 65 Imaging Results: Imaging Impressions Chest X-Ray 12/21/16 20:55 Impression: 1. No definite source for chest pain identified. 2. Suspect airways disease. 3. No change in nodular opacity at the left lung base. 4. Thoracic spine findings reported separately. Thoracic Spine X-Ray 12/21/16 20:55 Impression: Multiple thoracic vertebral body compression fractures with a new fracture at T6. Chest x-ray reviewed by me and shows no acute change. There is a nodule at the left lung base T-spine x-ray interpreted by me showing multiple compression fractures and appears that there is a new acute fracture at T6 Procedures: IV normal saline. 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 The patient, his daughter, and I discussed imaging and lab results. We discussed treatment plan including recommendation for admission. They expressed understanding and agreement I consulted and discussed the case with Dr. lo, hospitalist, who agrees to the admission Differential Diagnosis: I considered acute coronary syndrome, pulmonary embolus, pneumonia. I have also considered thoracic compression fractures which is what the patient appears to have. There is no evidence for acute coronary syndrome. Patient is not really able to go home or maintain himself at home and he lives by himself - Data Points Laboratory Results: Laboratory Results 12/21/16 20:45 12/21/16 20:45 12/21/16 12/21/16 12/21/16 20:45 20:45 20:45 WBC 13.36 10^3/uL H 10^3/uL (3.80-9.50) RBC 4.20 10^6/uL L 10^6/uL (4.40-6.38) Hgb 14.0 g/dL g/dL (13.7-17.5) Hct 41.0 % % (40.0-51.0) MCV 97.6 fL fL (81.5-99.8) MCH 33.3 pg pg (27.9-34.1) MCHC 34.1 g/dL g/dL (32.4-36.7) RDW 13.1 % % (11.5-15.2) Plt Count 370 10^3/uL 10^3/uL (150-400) MPV 8.6 fL L fL (8.7-11.7) Neut % (Auto) 72.4 % % (39.3-74.2) Lymph % (Auto) 18.6 % % (15.0-45.0) [place]ady % (Auto) 6.4 % % (4.5-13.0) Eos % (Auto) 0.7 % % (0.6-7.6) Baso % (Auto) 0.2 % L % (0.3-1.7) Nucleat RBC Rel Count 0.0 % % (0.0-0.2) Absolute Neuts (auto) 9.67 10^3/uL H 10^3/uL (1.70-6.50) Absolute Lymphs (auto) 2.48 10^3/uL 10^3/uL (1.00-3.00) Absolute Monos (auto) 0.85 10^3/uL H 10^3/uL (0.30-0.80) Absolute Eos (auto) 0.10 10^3/uL 10^3/uL (0.03-0.40) Absolute Basos (auto) 0.03 10^3/uL 10^3/uL (0.02-0.10) Absolute Nucleated RBC 0.00 10^3/uL 10^3/uL (0-0.01) Immature Gran % 1.7 % H % (0.0-1.1) Immature Gran # 0.23 10^3/uL H 10^3/uL (0.00-0.10) PT 12.5 SEC SEC (12.0-15.0) INR 0.94 (0.83-1.16) APTT 25.1 SEC SEC (23.0-38.0) D-Dimer < 0.27 ug/mLFEU ug/mLFEU (0.00-0.50) Sodium 134 mEq/L mEq/L (134-144) Potassium 4.7 mEq/L mEq/L (3.5-5.2) Chloride 99 mEq/L mEq/L (97-110) Carbon Dioxide 28 mEq/l mEq/l (22-31) Anion Gap 7 mEq/L L mEq/L (8-16) BUN 15 mg/dL mg/dL (7-23) Creatinine 0.7 mg/dL mg/dL (0.7-1.3) Estimated GFR > 60 Glucose 98 mg/dL mg/dL (70-100) Calcium 9.4 mg/dL mg/dL (8.5-10.4) Troponin I < 0.012 ng/mL ng/mL (0-0.034) Medications Given: Discontinued Medications Hydromorphone HCl (Dilaudid) 0.5 mg IVP EDNOW ONE Stop: 12/21/16 22:01 Last Admin: 12/21/16 22:11 Dose: 0.25 mg Departure - Departure Disposition: [facility] Inpatient Acute Clinical Impression: Thoracic compression fracture Qualifiers: Encounter type: initial encounter Fracture type: closed Qualified Code(s): S22.000A - Wedge compression fracture of unspecified thoracic vertebra, initial encounter for closed fracture Condition: Fair
[2016-12-21 21:05] LABS: % IMMATURE GRANULYOCYTES 1.7 % (0.0-1.1); ABSOLUTE IMMATURE GRANULOCYTES 0.23 10^3/uL (0.00-0.10); ADD DIFF? NO; ADD MORPH? NO; ADD SCAN? NO; ATYPICAL LYMPHOCYTE FLAG 0 (0-99); FRAGMENT RBC FLAG 0 (0-99); LEFT SHIFT FLG 20 (0-99); LIPEMIA HEMOLYSIS FLAG 90 (0-99); MEAN CELL HEMOGLOBIN 33.3 pg (27.9-34.1); MEAN CELL HEMOGLOBIN CONCENTR. 34.1 g/dL (32.4-36.7); MEAN CELL VOLUME 97.6 fL (81.5-99.8); MEAN PLATELET VOLUME 8.6 fL (8.7-11.7); PLATELET CLUMPS FLAG 0 (0-99); PLATELET COUNT 370 10^3/uL (150-400); RED CELL DISTRIBUTION WIDTH 13.1 % (11.5-15.2)
[2016-12-21 21:11] LABS: INR 0.94 (0.83-1.16); PROTIME(PATIENT) 12.5 SEC (12.0-15.0)
[2016-12-21 21:12] LABS: APTT 25.1 SEC (23.0-38.0)
[2016-12-21 21:13] LABS: ANION GAP 7 mEq/L (8-16); CALCIUM 9.4 mg/dL (8.5-10.4); CARBON DIOXIDE 28 mEq/l (22-31); CHLORIDE 99 mEq/L (97-110); CREATININE 0.7 mg/dL (0.7-1.3); GLOMERULAR FILTRATION RATE > 60; GLUCOSE 98 mg/dL (70-100); POTASSIUM 4.7 mEq/L (3.5-5.2); SODIUM 134 mEq/L (134-144)
[2016-12-21 21:24] LABS: TROPONIN I < 0.012 ng/mL (0-0.034)
[2016-12-21] MEDS ORDERED: HYDROmorphONE/DILAUDID 1 MG/ML SYR ONE (21:25)
--- NOTE | 2016-12-21 21:33 | CPEKG ---
Heart Rate: 65 RR Interval: 923 P-R Interval: 168 QRSD Interval: 84 QT Interval: 396 QTC Interval: 412 P [place]: 44 QRS [place]: 33 T Wave [place]: 50 EKG Severity - NORMAL ECG - EKG Impression: SINUS RHYTHM Electronically Signed By: Braulio Sheppard 21-Dec-2016 23:17:03
[2016-12-21] MEDS ORDERED: HYDROmorphONE/DILAUDID 1 MG/ML SYR IVP ONE (22:00)
[2016-12-21 22:08] LABS: COLOR YELLOW; LEUKOCYTE ESTERASE,URINE NEGATIVE (NEGATIVE); NITRITE,URINE NEGATIVE (NEGATIVE)
--- NOTE | 2016-12-21 22:50 | PDGENHP ---
History and Physical - Chief Complaint Acute back pain - History of Present Illness PCP: Dr. Fried Primary NSGY: Dr. Richardson Primary Cards: Dr. Araiza HPI: 85 yo M p/w acute back pain characterized as stabbing, located on left, assoc w/ "spasms" located in L scapula, onset of symptoms several weeks ago but acute worsening on evening of presentation. Duration is now persistent. Exacerbated by deep inspiration and repositioning; mildly alleviated by dilaudid IV received in ED. Home dose of oxy IR (half-tab) was ineffective. Pain was so severe he was unable to safely complete ADLs on date of presentation (felt like he could not safely get up from toilet or make meals). Reports chronic, unchanged urinary frequency, no significant hesitency or hematuria; last BM on AM of presentation. He denies any recent falls or trauma. He reports that he does not want to use a brace again, as an old rotator cuff injury has made it very difficult to place/remove the brace, and he has not used it since returning home from [facility] 09/10. He would be amenable to kyphoplasty if it resulted in reduced need for brace. History Information - Allergies/Home Medication List Allergies/Adverse Reactions: bimatoprost [From Lumigan] Allergy (Verified 11/02/16 13:37) Other-Enter Comments diatrizoate meglumine [From Gastrografin] Allergy (Verified 12/16/14 10:24) diatrizoate sodium [From Gastrografin] Allergy (Verified 12/16/14 10:24) iodine Allergy (Verified 11/02/16 13:37) Swelling/neck,face,throat Penicillins Allergy (Verified 11/02/16 13:37) Rash Home Medications: Aspirin [Aspirin 81mg (*)] 81 mg PO HS 05/14/16 [Last Taken 12/20/16] Brimonidine/Timolol [Combigan (*)] 1 drops EACHEYE BID 05/14/16 [Last Taken ] Docusate Sodium [Colace 100 MG (*)] 100 mg PO TID 05/14/16 [Last Taken 12/21/16] Herbals/Supplements -Info Only 1 ea PO DAILY 05/14/16 [Last Taken 09/03/16] Ranitidine HCl [Zantac 75] 75 mg PO DAILY PRN 05/14/16 [Last Taken Unknown] Carboxymethylcellulose 0.5% [Refresh Plus Drops 0.5%] 1 drops EACHEYE QID [Last Taken 12/21/16] Chlorpheniramine Maleate [Aller-Chlor] 4 mg PO DAILY PRN 09/03/16 [Last Taken ] Acetaminophen [Tylenol ES 500 mg (*)] 1,000 mg PO QID PRN 11/02/16 [Last Taken 11/02/16] C/E/Zn/Cu/OM3/DHA/EPA/LUT/ZEAX [Preservision Areds 2 Softgel] 1 each PO BID 07/11 [Last Taken 12/21/16] Omeprazole 40 mg PO DAILY16 11/02/16 [Last Taken 12/20/16] Sertraline HCl [Zoloft 25mg (*)] 25 mg PO DAILY 11/02/16 [Last Taken 12/21/16] Tamsulosin HCl [Flomax 0.4 MG (*)] 0.4 mg PO HS 11/02/16 [Last Taken 12/20/16] Cevimeline HCl [Evoxac] 30 mg PO TID 12/21/16 [Last Taken 12/21/16] Lact Cmb2/S.thermophl/Bif Cmb1 [Vsl#3 Cap (*)] 1 each PO 1200 12/21/16 [Last Taken 12/21/16] I have personally reviewed and updated: family history, medical history, social history, surgical history - Past Medical History Additional medical history: Syncope, suspected to be arrhytmogenic in setting 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 Recurrent, unwitnessed falls. T8 compression fracture 09/10 w/ brace. Prostate CA w/ XRT/beads, not metastatic. SBO. Glaucoma. Bilat inguinal hernia. Rotator Cuff injury - Surgical History Reports: no pertinent surgical hx - Family History Additional family history: Melanoma - Social History Smoking Status: Former smoker Alcohol Use: Occasionally Drug Use: None Additional social history: lives alone, independently, was in SNF 09/10 s/p T8 comp fxr Review of Systems ROS: 10pt was reviewed & negative except for what was stated in HPI & below Muscolosketal: Reports: back pain Neurological: Reports: other (gait instability) Physical Exam Temp Pulse Resp BP Pulse Ox 36.7 C 66 16 183/97 H 97 12/21/16 21:05 12/21/16 22:11 12/21/16 22:11 12/21/16 22:11 12/21/16 22:11 O2 (L/minute) 2 Constitutional: no apparent distress, appears nourished, uncomfortable, No chronically ill appearing Eyes: PERRL, anicteric sclera, EOMI Ears, Nose, Mouth, Throat: moist mucous membranes, hearing normal, ears appear normal, no oral mucosal ulcers Cardiovascular: regular rate and rhythym, no murmur, rub, or gallop, No edema Respiratory: no respiratory distress, no rales or rhonchi, clear to auscultation Gastrointestinal: normoactive bowel sounds, soft, non-tender abdomen, no palpable masses Musculoskeletal: other (no left lateral intercostal tenderness, full ROM L shoulder w/o pain) Neurologic: AAOx3, sensation intact bilaterally, No weakness (motor 5/5 bilat UE /LE) Psychiatric: interacting appropriately, not anxious, not encephalopathic, thought process linear Lab Data & Imaging Review 12/21/16 20:45 12/21/16 20:45 WBC 13.36 10^3/uL (3.80-9.50) H 12/21/16 20:45 RBC 4.20 10^6/uL (4.40-6.38) L 12/21/16 20:45 Hgb 14.0 g/dL (13.7-17.5) 12/21/16 20:45 Hct 41.0 % (40.0-51.0) 12/21/16 20:45 MCV 97.6 fL (81.5-99.8) 12/21/16 20:45 MCH 33.3 pg (27.9-34.1) 12/21/16 20:45 MCHC 34.1 g/dL (32.4-36.7) 12/21/16 20:45 RDW 13.1 % (11.5-15.2) 12/21/16 20:45 Plt Count 370 10^3/uL (150-400) 12/21/16 20:45 MPV 8.6 fL (8.7-11.7) L 12/21/16 20:45 Neut % (Auto) 72.4 % (39.3-74.2) 12/21/16 20:45 Lymph % (Auto) 18.6 % (15.0-45.0) 12/21/16 20:45 [place] % (Auto) 6.4 % (4.5-13.0) 12/21/16 20:45 Eos % (Auto) 0.7 % (0.6-7.6) 12/21/16 20:45 Baso % (Auto) 0.2 % (0.3-1.7) L 12/21/16 20:45 Nucleat RBC Rel Count 0.0 % (0.0-0.2) 12/21/16 20:45 Absolute Neuts (auto) 9.67 10^3/uL (1.70-6.50) H 12/21/16 20:45 Absolute Lymphs (auto) 2.48 10^3/uL (1.00-3.00) 12/21/16 20:45 Absolute Monos (auto) 0.85 10^3/uL (0.30-0.80) H 12/21/16 20:45 Absolute Eos (auto) 0.10 10^3/uL (0.03-0.40) 12/21/16 20:45 Absolute Basos (auto) 0.03 10^3/uL (0.02-0.10) 12/21/16 20:45 Absolute Nucleated RBC 0.00 10^3/uL (0-0.01) 12/21/16 20:45 Immature Gran % 1.7 % (0.0-1.1) H 12/21/16 20:45 Immature Gran # 0.23 10^3/uL (0.00-0.10) H 12/21/16 20:45 PT 12.5 SEC (12.0-15.0) 12/21/16 20:45 INR 0.94 (0.83-1.16) 12/21/16 20:45 APTT 25.1 SEC (23.0-38.0) 12/21/16 20:45 D-Dimer < 0.27 ug/mLFEU (0.00-0.50) 12/21/16 20:45 Sodium 134 mEq/L (134-144) 12/21/16 20:45 Potassium 4.7 mEq/L (3.5-5.2) 12/21/16 20:45 Chloride 99 mEq/L (97-110) 12/21/16 20:45 Carbon Dioxide 28 mEq/l (22-31) 12/21/16 20:45 Anion Gap 7 mEq/L (8-16) L 12/21/16 20:45 BUN 15 mg/dL (7-23) 12/21/16 20:45 Creatinine 0.7 mg/dL (0.7-1.3) 12/21/16 20:45 Estimated GFR > 60 12/21/16 20:45 Glucose 98 mg/dL (70-100) 12/21/16 20:45 Calcium 9.4 mg/dL (8.5-10.4) 12/21/16 20:45 Troponin I < 0.012 ng/mL (0-0.034) 12/21/16 20:45 Urine Color YELLOW 12/21/16 22:00 Urine Appearance CLEAR 12/21/16 22:00 Urine pH 6.0 (5.0-7.5) 12/21/16 22:00 Ur Specific [place] 1.015 (1.002-1.030) 12/21/16 22:00 Urine Protein NEGATIVE (NEGATIVE) 12/21/16 22:00 Urine Ketones NEGATIVE (NEGATIVE) 12/21/16 22:00 Urine Blood NEGATIVE (NEGATIVE) 12/21/16 22:00 Urine Nitrate NEGATIVE (NEGATIVE) 12/21/16 22:00 Urine Bilirubin NEGATIVE (NEGATIVE) 12/21/16 22:00 Urine Urobilinogen NEGATIVE EU (0.2-1.0) 12/21/16 22:00 Ur Leukocyte Esterase NEGATIVE (NEGATIVE) 12/21/16 22:00 Urine Glucose NEGATIVE (NEGATIVE) 12/21/16 22:00 Visualized and Interpreted Chest x-ray results: Yes Chest X-Ray results: other (stable L nodule, atelctasis) Visualized and Interpreted EKG results: Yes EKG Interpretation: Positive for: other (NSR w/o arrhythmia) Assessment & Plan Assessment: 85 yo M p/w acute back pain in setting of acute T6 compression fracture, recurrent falls Plan: 1. Back pain. Acutely worsening, new problem to this provider, further w/u indicated. 2/2 newly identified T6 comp fxr w/ co-morbid prior T8/12 fxrs - unable to control pain at home, admit for IV Rx and cycle in PO for extended relief - low dose anti-spasmodic agents - lidocaine patch, heat pad - bowel regimen - PT/OT for gait assessment - get rib scan to ensure not from rib fracture 2. T6 compression fracture. Acute, either pathologic vs. traumatic vs. osteoporotic - check PSA given potential for spinal disease, check Ca/Phos/Vit D levels - encourage ongoing use of brace, although patient would like to avoid given rotator cuff injury - if pain is 2/2 acute T6 fxr, patient would like to consider kyphoplasty, IR consult placed, will call in AM - will likely require SNF given significant reduction in ability to complete ADLs 3. Falls. Reported syncope, unwitnessed, reviewed outside records including DC Summary by Dr. Leung 11/03/16, reporting mild senile HOCM and suspicion for arrhythmogenic cause of syncope, patient decline stress testing / implantable monitoring at that time, did not want consideration of PPM - no further w/u indicated, given patient goals of care - no recent falls 4. High blood pressure. Per chart review, no overt dx of chronic HTN, likely elevated in setting of pain - control pain and reassess - no HTN symptoms, no indication for Rx mgmt 5. Atelectasis. Acute, 2/2 splinting from pain, present on CXR - start IS, rib scan as above Diet. Regular PPx. High risk, SCDs and hold lovenox given possible kypho Code. DNR Dispo. ADD uncertain, anticipated LOS > 48hrs warranting inpatient admission status re: reasonable medical necessity including acute T6 comp fxr requiring likely kyphoplasty, resulting in severe limitation in ability to complete ADLs, unsafe to discharge home at this time. Discussed with Dr. Braulio Sheppard, we both agree that patient is physically unsafe for discharge home at this time and requires admission for further w/u and care as outlined above.
[2016-12-21] MEDS ORDERED: ONDANSETRON 4 MG/2 ML VIAL IVP PRN (23:24)
[2016-12-21] MEDS ORDERED: IBUPROFEN 200 MG TAB PO PRN (23:24)
[2016-12-21] MEDS ORDERED: ONDANSETRON DISINTEGRATING 4 MG TAB PO PRN (23:24)
[2016-12-21] MEDS ORDERED: ACETAMINOPHEN 325 MG TAB PO PRN (23:24)
[2016-12-21] MEDS ORDERED: POLYETHYLENE GLYCOL 3350 17 GM PKT PO PRN (23:28)
[2016-12-21] MEDS ORDERED: MAGNESIUM HYDROXIDE 30 ML UDCUP PO PRN (23:28)
[2016-12-21] MEDS ORDERED: BISACODYL 10 MG SUPP PR PRN (23:28)
[2016-12-21] MEDS ORDERED: CHLORPHENIRAMINE MALEATE 4 MG TAB PO PRN (23:28)
[2016-12-21] MEDS ORDERED: LACTULOSE 20 GM/30 ML UDCUP PO PRN (23:28)
[2016-12-21] MEDS ORDERED: FLUOROMETHOLONE LEFTEYE SCH (23:30)
[2016-12-22] MEDS: TAMSULOSIN HCL 0.4 MG CAP PO SCH ×2 (00:03→20:51)
[2016-12-22] MEDS: LORazepam 1 MG TAB PO SCH ×2 (00:03→20:51)
[2016-12-22] MEDS: LIDOCAINE 5% 1 EA PATCH TD SCH ×2 (00:05→20:49)
[2016-12-22] MEDS: PRESERVISION AREDS2 FORMULA EYE VIT 1 EACH PO SCH ×3 (00:12→21:11)
[2016-12-22] MEDS: LATANOPROST 0.005% 2.5 ML OPHT DROPS LEFTEYE SCH ×2 (00:12→21:01)
[2016-12-22] MEDS: oxyCODONE IR 5 MG TAB PO PRN ×3 (04:16→21:00)
[2016-12-22 04:55] LABS: % IMMATURE GRANULYOCYTES 1.7 % (0.0-1.1); ABSOLUTE IMMATURE GRANULOCYTES 0.19 10^3/uL (0.00-0.10); ADD DIFF? NO; ADD MORPH? NO; ADD SCAN? NO; ATYPICAL LYMPHOCYTE FLAG 0 (0-99); FRAGMENT RBC FLAG 0 (0-99); HEMATOCRIT 37.9 % (40.0-51.0); HEMOGLOBIN 13.1 g/dL (13.7-17.5); LEFT SHIFT FLG 20 (0-99); LIPEMIA HEMOLYSIS FLAG 90 (0-99); MEAN CELL HEMOGLOBIN 33.8 pg (27.9-34.1); MEAN CELL HEMOGLOBIN CONCENTR. 34.6 g/dL (32.4-36.7); MEAN CELL VOLUME 97.7 fL (81.5-99.8); MEAN PLATELET VOLUME 8.4 fL (8.7-11.7); PLATELET CLUMPS FLAG 0 (0-99); PLATELET COUNT 307 10^3/uL (150-400); RED BLOOD CELL COUNT 3.88 10^6/uL (4.40-6.38); RED CELL DISTRIBUTION WIDTH 13.1 % (11.5-15.2)
[2016-12-22 05:08] LABS: ALBUMIN 3.4 g/dL (3.5-5.0); ANION GAP 5 mEq/L (8-16); CALCIUM 9.2 mg/dL (8.5-10.4); CARBON DIOXIDE 26 mEq/l (22-31); CHLORIDE 102 mEq/L (97-110); CREATININE 0.7 mg/dL (0.7-1.3); GLOMERULAR FILTRATION RATE > 60; GLUCOSE 108 mg/dL (70-100); POTASSIUM 4.5 mEq/L (3.5-5.2); SODIUM 133 mEq/L (134-144)
[2016-12-22 05:25] LABS: VITAMIN D 25-HYDROXY TOTAL 33.8 ng/mL (30-100)
[2016-12-22] MEDS: CARBOXYMETHYLCELLULOSE 0.5% EACHEYE SCH ×4 (06:24→21:01)
[2016-12-22] MEDS: FLUOROMETHOLONE 0.25% LEFTEYE SCH (08:32)
[2016-12-22] MEDS: CEVIMELINE HCL 30 MG PO SCH ×3 (08:34→22:57)
[2016-12-22] MEDS: SERTRALINE HCL 25 MG TAB PO SCH (08:36)
[2016-12-22] MEDS: SENNOSIDES/DOCUSATE SODIUM TAB PO SCH ×3 (08:36→20:51)
[2016-12-22] MEDS: BRIMONIDINE/TIMOLOL 5 ML OPHT.BTL EACHEYE SCH ×2 (08:41→21:01)
[2016-12-22] MEDS ORDERED: Herbals/Supplements -Info Only PO SCH (09:00)
[2016-12-22] MEDS: PATCH REMOVAL 1 EA PATCH TD SCH (10:52)
--- NOTE | 2016-12-22 10:56 | HOSPPROG ---
Hospitalist Progress Note Assessment/Plan: Suleman Ledezma is an 85-year-old male who presented to the emergency room with severe back pain. He also was complaining of spasms in the left scapula area. Today is my first encounter with the patient/chart reviewed. * T6 compression fracture Unclear if this is pathologic versus traumatic versus osteoporotic patient prefers no back brace due to difficulty being able place it on may benefit from a kyphoplasty/IR consult ordered * back pain likely related to the above has prior T8/12 fractures patient is unable to control the pain at home rib x-ray show nothing acute pain is ongoing/will do a trial of Robaxin, scheduled Tylenol, prn morphine isn't helping, change this to Dilaudid * gait instability with falls that were unwitnessed/none since August per patient concern for syncopal events. Patient has declined stress testing and implantable monitoring no recent falls * HTN/no hx of this bp elevated due to pain * Atelectasis. Acute, 2/2 splinting from pain, present on CXR IS ordered * hyponatremia follow * Leukocytosis follow *Dvt prophylaxis on hold in case of procedure,avery jose, athrombic pumps *Plan: change pain meds, IR to see, repeat labs in a.m., check a vitamin d level Subjective: Suleman is c/o severe back pain. Objective: Vital Signs Temp Pulse Resp BP Pulse Ox 36.9 C 71 14 169/93 H 95 12/22/16 08:00 12/22/16 10:30 12/22/16 08:00 12/22/16 10:30 12/22/16 08:00 Laboratory Results 12/22/16 04:40 12/22/16 04:40 12/21/16 12/22/16 12/23/16 05:59 05:59 05:59 Intake Total 350 150 Output Total 640 200 Balance -290 -50 PT 12.5 SEC (12.0-15.0) 12/21/16 20:45 INR 0.94 (0.83-1.16) 12/21/16 20:45 - Physical Exam Constitutional: uncomfortable, No not in pain Eyes: PERRL Ears, Nose, Mouth, Throat: hearing normal Cardiovascular: regular rate and rhythym Respiratory: no respiratory distress, reduced air movement Gastrointestinal: normoactive bowel sounds Skin: warm Neurologic: AAOx3 Psychiatric: interacting appropriately, anxious ICD10 Worksheet Patient Problems: Problems Problem Status Onset Thoracic compression fracture Acute Abdominal pain Acute Small bowel infarction Acute Syncope Acute
[2016-12-22] MEDS ORDERED: HYDROmorphONE/DILAUDID 1 MG/ML SYR IVP PRN (12:30)
[2016-12-22] MEDS: VSL#3 1 EACH CAP PO SCH (13:26)
[2016-12-22] MEDS: ACETAMINOPHEN 500 MG TAB PO SCH ×2 (14:11→20:50)
[2016-12-22] MEDS: METHOCARBAMOL 750 MG TAB PO PRN ×2 (14:11→20:59)
[2016-12-22] MEDS ORDERED: hydrALAZINE 10 MG TAB PO PRN (15:58)
[2016-12-22] MEDS: PANTOPRAZOLE SODIUM 40 MG TAB PO SCH (17:44)
--- NOTE | 2016-12-22 18:41 | GCON ---
[f rep st] CONSULTATION DATE OF CONSULTATION: 12/22/2016 REASON FOR CONSULTATION: Debilitating pain from compression fractures, unable to tolerate external brace. HISTORY OF PRESENT ILLNESS: The patient was admitted to the hospital yesterday for acute severe sta bbing back pain located on the left near the scapula, with pain in the left lateral ribs. Thoracic spine radiographs reported a new compression fracture of T6 and old compression fractures of T8 and T12. He has been treated with bed rest. He has had some relief with bed rest and analgesic medicat ion in the hospital, but still suffers severe spasms of stabbing pain when he changes position. One episode occurred today when he was transported to Radiology for rib radiographs, when he passed out . This was attributed to vagal reaction from the severe pain. He is also being treated with Robaxi n. He is currently hypertensive at 183/105, attributing that to anxiety. PAST MEDICAL HISTORY: Syncope. Prostate cancer with x-ray therapy, beads, not metastatic. Small bowel obstruction. Glaucoma. Bilateral inguinal hernias. Rotator cuff surgery last fall, right shoulder, which is interfering with his use of the external br sabrina for thoracic compression fracture. SOCIAL HISTORY: Nonsmoker, occasional alcohol use. HOME MEDICATIONS: Include aspirin, which was last taken on December 20. LABORATORY VALUES: Hematocrit 37.9, hemoglobin 13.1, platelet count 307. PT 12.5, PTT 25.1. IMAGING FINDINGS: Thoracic spine radiographs from yesterday demonstrate compression fractures of T6 (new), T8 (moderately severe anterior wedge compression deformity with mild thoracic kyphosis; this level is sclerotic and likely to be healed), T10 (similar to November 02, mild, new compared to MRI fr om August), and T12 (unchanged from August, not edematous at that time). Radiographs of left ribs from today demonstrate old, healed fractures of left 4th and 5th ribs. PHYSICAL EXAMINATION: I can elicit no tenderness from palpating his spine. Palpation of left ribs elicits tenderness from approximately left 6th rib and left 7th rib. ASSESSMENT: Debilitating pain from acute compression fracture of T6. Subacute compression fracture at T10. Old compression fractures at T8 and T12. I believe that the symptoms in the left ribs are referred from the fracture of T6, which is eccentric leftward. He has done poorly with the Romero brace and is very interested in anything that we can do with interventional procedure to allow him t o forego using the brace. His activities of daily living have been severely compromised, leaving hi m "a cripple." PLAN: 1. MRI of thoracic spine without contrast to pinpoint appropriate levels of intervention. 2. Anesthesiology consultation for management during the procedure. 3. I believe that we can obtain the MRI tomorrow (Friday, December 23) and schedule the thoracic kyphopla sty for December 24. 25 minutes consultation, 15 minutes [id number] time. /[id number]/MODL
[2016-12-22] MEDS ORDERED: ASPIRIN 81 MG CHEWABLE TAB PO SCH (21:00)
[2016-12-22] MEDS ORDERED: FAMOTIDINE 20 MG TAB PO PRN (23:28)
[2016-12-23] MEDS: oxyCODONE IR 5 MG TAB PO PRN ×3 (03:42→12:27)
[2016-12-23 05:11] LABS: % IMMATURE GRANULYOCYTES 1.5 % (0.0-1.1); ABSOLUTE IMMATURE GRANULOCYTES 0.14 10^3/uL (0.00-0.10); ADD DIFF? NO; ADD MORPH? NO; ADD SCAN? NO; ATYPICAL LYMPHOCYTE FLAG 0 (0-99); FRAGMENT RBC FLAG 0 (0-99); HEMATOCRIT 33.5 % (40.0-51.0); HEMOGLOBIN 11.6 g/dL (13.7-17.5); LEFT SHIFT FLG 20 (0-99); LIPEMIA HEMOLYSIS FLAG 90 (0-99); MEAN CELL HEMOGLOBIN 33.8 pg (27.9-34.1); MEAN CELL HEMOGLOBIN CONCENTR. 34.6 g/dL (32.4-36.7); MEAN CELL VOLUME 97.7 fL (81.5-99.8); MEAN PLATELET VOLUME 8.4 fL (8.7-11.7); PLATELET CLUMPS FLAG 0 (0-99); PLATELET COUNT 287 10^3/uL (150-400); RED BLOOD CELL COUNT 3.43 10^6/uL (4.40-6.38)
[2016-12-23 05:35] LABS: ANION GAP 7 mEq/L (8-16); CALCIUM 8.8 mg/dL (8.5-10.4); CARBON DIOXIDE 25 mEq/l (22-31); CHLORIDE 100 mEq/L (97-110); CREATININE 0.7 mg/dL (0.7-1.3); GLOMERULAR FILTRATION RATE > 60; GLUCOSE 114 mg/dL (70-100); POTASSIUM 4.1 mEq/L (3.5-5.2); SODIUM 132 mEq/L (134-144)
[2016-12-23 05:46] LABS: VITAMIN D 25-HYDROXY TOTAL 27.2 ng/mL (30-100)
[2016-12-23] MEDS: METHOCARBAMOL 750 MG TAB PO PRN ×3 (06:43→21:04)
[2016-12-23] MEDS: BRIMONIDINE/TIMOLOL 5 ML OPHT.BTL EACHEYE SCH ×2 (08:39→21:00)
[2016-12-23] MEDS: SENNOSIDES/DOCUSATE SODIUM TAB PO SCH ×2 (08:39→21:04)
[2016-12-23] MEDS: SERTRALINE HCL 25 MG TAB PO SCH (08:39)
[2016-12-23] MEDS: ACETAMINOPHEN 500 MG TAB PO SCH ×3 (08:39→21:03)
[2016-12-23] MEDS: CARBOXYMETHYLCELLULOSE 0.5% EACHEYE SCH ×4 (08:39→21:01)
[2016-12-23] MEDS: PRESERVISION AREDS2 FORMULA EYE VIT 1 EACH PO SCH ×2 (08:39→17:37)
[2016-12-23] MEDS: CEVIMELINE HCL 30 MG PO SCH ×3 (08:40→21:02)
[2016-12-23] MEDS: PATCH REMOVAL 1 EA PATCH TD SCH (09:00)
[2016-12-23] MEDS: VSL#3 1 EACH CAP PO SCH (12:23)
--- NOTE | 2016-12-23 12:40 | HOSPPROG ---
Hospitalist Progress Note Assessment/Plan: holding asa in case of intervention today or tomorrow. Hospitalist Progress Note Assessment/Plan: Suleman Ledezma is an 85-year-old male who presented to the emergency room with severe back pain. He also was complaining of spasms in the left scapula area. Today is my first encounter with the patient/chart reviewed. Reviewed with Dr Arias. * T6 compression fracture Unclear if this is pathologic versus traumatic versus osteoporotic didn't tolerate back brace appreciate kyphoplasty/IR consult MRI today * back pain likely related to the above has prior T8/12 fractures patient is unable to control the pain at home rib x-ray show nothing acute pain is ongoing/will do a trial of Robaxin, scheduled Tylenol, prn morphine isn't helping, change this to Dilaudid * gait instability with falls that were unwitnessed/none since August per patient concern for syncopal events. Patient has declined stress testing and implantable monitoring no recent falls * HTN/no hx of this bp elevated due to pain * Atelectasis. Acute, 2/2 splinting from pain, present on CXR IS ordered * hyponatremia follow * Leukocytosis follow * Vit D Def start replacement *Dvt prophylaxis on hold in case of procedure,avery jose, athrombic pumps *Plan:MRI,NPO, possible kypho in am Subjective: Still haivng significant pain. Unable to move without discomfort. Objective: Vital Signs Temp Pulse Resp BP Pulse Ox 36.5 C 70 15 151/81 H 93 12/23/16 12:01 12/23/16 12:01 12/23/16 12:01 12/23/16 12:01 12/23/16 12:01 Laboratory Results 12/23/16 04:52 12/23/16 04:52 12/22/16 12/23/16 12/24/16 05:59 05:59 05:59 Intake Total 350 400 300 Output Total 640 925 Balance -290 -525 300 PT 12.5 SEC (12.0-15.0) 12/21/16 20:45 INR 0.94 (0.83-1.16) 12/21/16 20:45 - Physical Exam Constitutional: no apparent distress, appears nourished, uncomfortable Eyes: PERRL, anicteric sclera, EOMI Ears, Nose, Mouth, Throat: moist mucous membranes, hearing normal, ears appear normal Cardiovascular: No JVD, No tachycardia, No edema Respiratory: no respiratory distress, no rales or rhonchi, reduced air movement Gastrointestinal: No tenderness, No ascites, No guarding Skin: warm, normal color, No erythema Musculoskeletal: no joint effusions, muscular tenderness, generalized weakness Neurologic: AAOx3 Psychiatric: interacting appropriately, not anxious, not encephalopathic ICD10 Worksheet Patient Problems: Problems Problem Status Onset Abdominal pain Acute Small bowel infarction Acute Syncope Acute Thoracic compression fracture Acute
[2016-12-23] MEDS: PANTOPRAZOLE SODIUM 40 MG TAB PO SCH (16:00)
[2016-12-23] MEDS ORDERED: CLINDAMYCIN 900 MG/DEXTROSE 50 ML IV ONE (18:32)
[2016-12-23] MEDS ORDERED: DEXAMETHASONE 10 MG/ML VIAL IVP ONE (18:34)
[2016-12-23] MEDS: LORazepam 1 MG TAB PO SCH (21:05)
[2016-12-23] MEDS: LIDOCAINE 5% 1 EA PATCH TD SCH (21:05)
[2016-12-23] MEDS: TAMSULOSIN HCL 0.4 MG CAP PO SCH (21:06)
[2016-12-23] MEDS: LATANOPROST 0.005% 2.5 ML OPHT DROPS LEFTEYE SCH (21:15)
[2016-12-24] MEDS ORDERED: CLINDAMYCIN 900 MG/DEXTROSE 50 ML IV ONE (06:00)
[2016-12-24] MEDS ORDERED: DEXAMETHASONE 10 MG/ML VIAL IVP ONE (06:00)
[2016-12-24] MEDS: CARBOXYMETHYLCELLULOSE 0.5% EACHEYE SCH ×4 (06:03→20:15)
[2016-12-24] MEDS: FLUOROMETHOLONE 0.25% LEFTEYE SCH (06:07)
[2016-12-24] MEDS: BRIMONIDINE/TIMOLOL 5 ML OPHT.BTL EACHEYE SCH ×2 (06:08→20:15)
[2016-12-24] MEDS: ACETAMINOPHEN 500 MG TAB PO SCH ×3 (08:00→20:24)
[2016-12-24] MEDS: PRESERVISION AREDS2 FORMULA EYE VIT 1 EACH PO SCH ×2 (08:00→17:37)
[2016-12-24] MEDS: CEVIMELINE HCL 30 MG PO SCH ×3 (08:01→20:25)
[2016-12-24] MEDS: SERTRALINE HCL 25 MG TAB PO SCH (08:01)
[2016-12-24] MEDS: SENNOSIDES/DOCUSATE SODIUM TAB PO SCH ×2 (08:01→20:24)
[2016-12-24] MEDS: CHOLECALCIFEROL VIT D3 2,000 UNITS TAB/CAP PO SCH (08:01)
[2016-12-24] MEDS ORDERED: BISACODYL 10 MG SUPP PR ONE (09:32)
[2016-12-24] MEDS: PATCH REMOVAL 1 EA PATCH TD SCH (11:17)
--- NOTE | 2016-12-24 11:31 | HOSPPROG ---
Hospitalist Progress Note Assessment/Plan: holding asa in case of intervention today or tomorrow. Hospitalist Progress Note Assessment/Plan: Suleman Ledezma is an 85-year-old male who presented to the emergency room with severe back pain. He also was complaining of spasms in the left scapula area. * T6 compression fracture Unclear if this is pathologic versus traumatic versus osteoporotic didn't tolerate back brace appreciate kyphoplasty/IR consult MRI shows progression * back pain likely related to the above has prior T8/12 fractures patient is unable to control the pain at home rib x-ray show nothing acute pain is ongoing/will do a trial of Robaxin, scheduled Tylenol, prn morphine isn't helping, change this to Dilaudid * gait instability with falls that were unwitnessed/none since August per patient concern for syncopal events. Patient has declined stress testing and implantable monitoring no recent falls * HTN/no hx of this bp elevated due to pain * Atelectasis. Acute, 2/2 splinting from pain, present on CXR IS ordered * hyponatremia follow * Leukocytosis follow * Vit D Def start replacement *Dvt prophylaxis on hold in case of procedure,avery jose, athrombic pumps *Plan: NPO, kypho today may need rehab Subjective: Still having significant pain. Asking for bowel therapy. Objective: Vital Signs Temp Pulse Resp BP Pulse Ox 36.3 C 67 16 146/78 H 93 12/24/16 08:05 12/24/16 08:05 12/24/16 08:05 12/24/16 08:05 12/24/16 08:05 Laboratory Results 12/23/16 04:52 12/23/16 04:52 12/23/16 12/24/16 12/25/16 05:59 05:59 05:59 Intake Total 400 300 Output Total 925 Balance -525 300 PT 12.5 SEC (12.0-15.0) 12/21/16 20:45 INR 0.94 (0.83-1.16) 12/21/16 20:45 - Physical Exam Constitutional: appears nourished, uncomfortable Eyes: PERRL, anicteric sclera, EOMI Ears, Nose, Mouth, Throat: moist mucous membranes, hearing normal, ears appear normal Cardiovascular: No JVD, No tachycardia, No edema Respiratory: no respiratory distress, no rales or rhonchi, reduced air movement Gastrointestinal: No tenderness, No ascites Skin: warm, normal color Musculoskeletal: pain with ROM, muscular tenderness, generalized weakness Neurologic: AAOx3 Psychiatric: interacting appropriately, not anxious, not encephalopathic ICD10 Worksheet Patient Problems: Problems Problem Status Onset Abdominal pain Acute Small bowel infarction Acute Syncope Acute Thoracic compression fracture Acute
[2016-12-24] MEDS ORDERED: PROPOFOL 200 MG/20 ML VIAL ONE (12:29)
[2016-12-24] MEDS ORDERED: fentaNYL 100 MCG/2 ML INJ ONE (12:31)
[2016-12-24] MEDS ORDERED: PROPOFOL/EMULSION 500 MG/50 ML BOTTLE IV ONE (12:44)
[2016-12-24] MEDS ORDERED: epHEDrine SULFATE 10 MG/ML SYR ONE ×2 (13:05→13:38)
[2016-12-24] MEDS ORDERED: ONDANSETRON 4 MG/2 ML VIAL ONE (13:11)
[2016-12-24] MEDS: VSL#3 1 EACH CAP PO SCH (13:51)
[2016-12-24] MEDS ORDERED: BUPIVACAINE 0.5% 30 ML SDV ONE (14:37)
[2016-12-24] MEDS ORDERED: LIDOCAINE 1% 30 ML SDV ONE (14:37)
[2016-12-24] MEDS: PANTOPRAZOLE SODIUM 40 MG TAB PO SCH (16:04)
[2016-12-24] MEDS: METHOCARBAMOL 750 MG TAB PO PRN (18:39)
[2016-12-24] MEDS: LATANOPROST 0.005% 2.5 ML OPHT DROPS LEFTEYE SCH (20:15)
[2016-12-24] MEDS: TAMSULOSIN HCL 0.4 MG CAP PO SCH (20:24)
[2016-12-24] MEDS: LORazepam 1 MG TAB PO SCH (20:25)
[2016-12-24] MEDS: LIDOCAINE 5% 1 EA PATCH TD SCH (21:40)
[2016-12-25] MEDS: CARBOXYMETHYLCELLULOSE 0.5% EACHEYE SCH ×3 (06:35→12:03)
[2016-12-25 07:17] VITALS: BP 140/72; PULSE 75; RESP 12; TEMP 97.7; O2SAT 93
[2016-12-25] MEDS: METHOCARBAMOL 750 MG TAB PO PRN (07:29)
[2016-12-25] MEDS: CHOLECALCIFEROL VIT D3 2,000 UNITS TAB/CAP PO SCH (07:29)
[2016-12-25] MEDS: PRESERVISION AREDS2 FORMULA EYE VIT 1 EACH PO SCH (07:29)
[2016-12-25] MEDS: SERTRALINE HCL 25 MG TAB PO SCH (07:29)
[2016-12-25] MEDS: ACETAMINOPHEN 500 MG TAB PO SCH (07:29)
[2016-12-25] MEDS: BRIMONIDINE/TIMOLOL 5 ML OPHT.BTL EACHEYE SCH (07:33)
[2016-12-25] MEDS: CEVIMELINE HCL 30 MG PO SCH (07:35)
[2016-12-25] MEDS: PATCH REMOVAL 1 EA PATCH TD SCH (10:27)
[2016-12-25] MEDS: SENNOSIDES/DOCUSATE SODIUM TAB PO SCH (10:27)
--- NOTE | 2016-12-25 10:36 | HOSPPROG ---
Hospitalist Progress Note Assessment/Plan: Suleman Ledezma is an 85-year-old male who presented to the emergency room with severe back pain. He also was complaining of spasms in the left scapula area. * T6 compression fracture Unclear if this is pathologic versus traumatic versus osteoporotic patient prefers no back brace due to difficulty being able place it on s/p kyphoplasty/appreciate Dr Strauss patient isn't sure how much it has helped * back pain likely related to the above has prior T8/12 fractures * gait instability with falls that were unwitnessed/none since August per patient concern for syncopal events. Patient has declined stress testing and implantable monitoring no recent falls *vitamin D Deficiency meds ordered * HTN/no hx of this bp better/ pain likely the etiologoy * Atelectasis. Acute, 2/2 splinting from pain, present on CXR IS ordered * hyponatremia Na 132 * Leukocytosis follow *Plan: dc to SNF Subjective: Suleman is not having any pain at rest, but has pain with reaching out with his left arm. Objective: Vital Signs Temp Pulse Resp BP Pulse Ox 36.5 C 75 12 140/72 H 93 12/25/16 07:14 12/25/16 07:14 12/25/16 07:14 12/25/16 07:14 12/25/16 07:14 Laboratory Results 12/23/16 04:52 12/23/16 04:52 12/24/16 12/25/16 12/26/16 05:59 05:59 05:59 Intake Total 300 1750 Output Total 100 Balance 300 1650 PT 12.5 SEC (12.0-15.0) 12/21/16 20:45 INR 0.94 (0.83-1.16) 12/21/16 20:45 - Physical Exam Constitutional: uncomfortable, other (thin) Eyes: PERRL Ears, Nose, Mouth, Throat: hearing normal Cardiovascular: regular rate and rhythym Respiratory: no respiratory distress Gastrointestinal: normoactive bowel sounds Skin: warm Musculoskeletal: muscular tenderness (back area), generalized weakness Neurologic: AAOx3 Psychiatric: interacting appropriately, not anxious ICD10 Worksheet Patient Problems: Problems Problem Status Onset Thoracic compression fracture Acute Abdominal pain Acute Small bowel infarction Acute Syncope Acute
--- NOTE | 2016-12-25 11:03 | PDIAF ---
- Diagnosis Diagnosis: T 8 compression fracture/vitamin D deficiency, htn Code Status: Do Not Resuscitate - Medication Management Discharge Medications: Medications to Continue on Transfer Aspirin [Aspirin 81mg (*)] 81 mg PO HS 05/14/16 [Last Taken 12/20/16] Brimonidine/Timolol [Combigan (*)] 1 drops EACHEYE BID 05/14/16 [Last Taken ] Docusate Sodium [Colace 100 MG (*)] 100 mg PO TID 05/14/16 [Last Taken 12/21/16] Herbals/Supplements -Info Only 1 ea PO DAILY 05/14/16 [Last Taken 09/03/16] Ranitidine HCl [Zantac 75] 75 mg PO DAILY PRN 05/14/16 [Last Taken Unknown] Carboxymethylcellulose 0.5% [Refresh Plus Drops 0.5%] 1 drops EACHEYE QID [Last Taken 12/21/16] Chlorpheniramine Maleate [Aller-Chlor] 4 mg PO DAILY PRN 09/03/16 [Last Taken ] C/E/Zn/Cu/OM3/DHA/EPA/LUT/ZEAX [Preservision Areds 2 Softgel] 1 each PO BID 07/11 [Last Taken 12/21/16] Omeprazole 40 mg PO DAILY16 11/02/16 [Last Taken 12/20/16] Sertraline HCl [Zoloft 25mg (*)] 25 mg PO DAILY 11/02/16 [Last Taken 12/21/16] Tamsulosin HCl [Flomax 0.4 MG (*)] 0.4 mg PO HS 11/02/16 [Last Taken 12/20/16] Fluorometholone [Fml Forte] 1 drop LEFTEYE Q48H 11/03/16 [Last Taken 12/20/16] LORazepam [Ativan (*)] 1 mg PO HS tab 11/03/16 [Last Taken 12/20/16] Latanoprost 0.005% [Xalatan 0.005% (*)] 1 drops LEFTEYE HS opht.btl 11/03/16 [ Last Taken 12/21/16] Cevimeline HCl [Evoxac] 30 mg PO TID 12/21/16 [Last Taken 12/21/16] Lact Cmb2/S.thermophl/Bif Cmb1 [Vsl#3 Cap (*)] 1 each PO 1200 12/21/16 [Last Taken 12/21/16] Acetaminophen [Tylenol ES 500 mg (*)] 1,000 mg PO TID tab 12/25/16 [Last Taken Unknown] Cholecalciferol Vit D3 [Vitamin D3 2000 units tab (OTC)] 2,000 units PO DAILY each 12/25/16 [Last Taken Unknown] Ibuprofen [Motrin (*)] 400 mg PO Q4HRS PRN #0 tab 12/25/16 [Last Taken Unknown] Lidocaine 5% [Lidoderm 5% Patch (*)] 1 ea TD DAILY21 patch 12/25/16 [Last Taken Unknown] Methocarbamol [Robaxin 750 mg (*)] 750 mg PO TID PRN #0 tab 12/25/16 [Last Taken Unknown] Patch Removal 1 ea TD DAILY patch 12/25/16 [Last Taken Unknown] Polyethylene Glycol 3350 [Miralax 17 gm (*)] 17 gm PO DAILY PRN #0 pkt 12/25/16 [Last Taken Unknown] Sennosides/Docusate Sodium [Senokot-S] 1 - 2 tab PO BID tab 12/25/16 [Last Taken Unknown] oxyCODONE IR [Oxycodone Ir (*)] 5 - 10 mg PO Q4HRS PRN #0 tab 12/25/16 [Last Taken Unknown] Discharge Medications: Refer to the Discharge Home Medication list for PRN reason. - Orders Services needed: Physical Therapy, Occupational Therapy Diet Recommendation: no restrictions on diet Diet Texture: Regular Texture Diet Additional: s/p kyphoplasty, activity as tolerated/ gentle slow movements to avoid any strain to his back area. If blood pressure is >140/90, patient should get treatment w his PCP. - Labs/Radiology BMP Date: 01/01/17 CBC Date: 01/01/17 - Follow Up Care Current Providers and Referrals: UDAY CASTRO [Primary Care Provider] - As per Instructions
[2016-12-25] MEDS: VSL#3 1 EACH CAP PO SCH (12:06)
--- NOTE | 2016-12-25 13:09 | GDS ---
[f rep st] DISCHARGE SUMMARY DISCHARGE DIAGNOSES: 1. T6 compression fracture. 2. Back pain related to the T8 compression fracture. 3. Gait instability with falls that were unwitnessed. 4. Vitamin D deficiency. 5. Hypertension, without history of this. 6. Atelectasis. 7. Hyponatremia. 8. Leukocytosis. CONSULTATIONS: Dr. Todd Arias BRIEF HISTORY: The patient is an 85-year-old male who was admitted for back pain located in the area near his scapula and with radiation to the left lateral ribs. His thoracic spine radiographs showed a new compression fracture of T6 and old compression fractures of T8 and T12. He was treated with anti- inflammatories, narcotics, and medications for spasms. He has not tolerated a Romero brace in the past, so this was not ordered. Subsequently, he had a thoracic spine MRI which confirmed the compression fracture of T8 has progressed since the previous MRI study. He has retropulsion of the posterior inferior corner that is stable. He has development of mild compression fractures of T6 and T10. Stable mild compressions. Plate of T12 associated with a Schmorl's node. And he has mild edema in the left paraspinal musculature at the T9-T10 segment level. He was seen and evaluated by Dr. Todd Arias, and on 12/24/2016 he had a kyphoplasty. Today, his pain is maybe slightly better, but he is not sure if this has helped significantly. HOSPITAL COURSE: 1. T6 compression fracture, unclear if this is pathologic versus traumatic versus osteoporotic. He does not want a back brace placed because he cannot place it on. He is status post kyphoplasty. He will get rehab at a retirement facility. 2. Back pain, related to the above. 3. Gait instability with falls that were unwitnessed. The patient said he has had no further falls since August. 4. Vitamin D deficiency. On vitamin D. 5. Hypertension. Blood pressure is better today, but still elevated. Will have him follow up with his primary care provider if his systolic remains greater than 140. 6. Atelectasis, improved. 7. Hyponatremia, most recent sodium is 132. 8. Leukocytosis, much improved. PENDING LABS AND TESTS: None. CONDITION AT DISCHARGE: Stable. Blood pressure is 140/72, heart rate 75, respiratory rate is 12, O2 saturation on half a liter 92%. Temperature is 36.5 Celsius. MEDICATIONS AT DISCHARGE: Please see the EMR. DISCHARGE INSTRUCTIONS: 1. To get care, PT and OT at the retirement facility. 2. If he develops fever, chills, chest pain, or shortness of breath, return to the ER. Greater than 35 minutes discharging and coordinating patient's care. /[id number]/MODL MTDD
== END 2016-12-25 13:15 | DRG 516 ==
LOC: EDUNIT# → UNDOADMIN 21:46 → F3N 23:02
PROVIDERS: ADMIT Internal Medicine; ATTEND Internal Medicine
DX: M48.54XA Collapsed vertebra, not elsewhere classified, thoracic region, initial encounter for fracture (principal); E87.1 Hypo-osmolality and hyponatremia; J98.11 Atelectasis; E55.9 Vitamin D deficiency, unspecified; I10 Essential (primary) hypertension; R29.6 Repeated falls; R33.9 Retention of urine, unspecified; Z85.46 Personal history of malignant neoplasm of prostate; Z85.118 Personal history of other malignant neoplasm of bronchus and lung; Z66 Do not resuscitate; Z87.891 Personal history of nicotine dependence
CPT/HCPCS: 96374; 97116-GP; 97162-GP; 97166-GO; 97168-GO; G0103; G8978-GP-CJ; G8979-GP-CI; G8987-GO-CJ; G8987-GO-CK; G8988-GO-CJ; G8989-GO-CJ; J1170; J2405; J2704; J3010

== ENCOUNTER 2017-05-02 10:29 | Inpatient (IN) | payer OTHER ==
--- NOTE | 2017-05-02 12:29 | EDPHY ---
H & P Stated Complaint: Fall 5 days ago and has low back pain Time Seen by Provider: 05/02/17 10:31 HPI/ROS: CHIEF COMPLAINT: acute on chronic back pain HISTORY OF PRESENT ILLNESS: 86-year-old male presents emergency department complaining of worsening low back pain x1 week. Patient had a mechanical trip and fall while in the bathroom 1 week ago and has had lower back pain since this time. Patient has had chronic neck and back pain for many years has been worsening. He has had a kyphoplasty in the past with pain relief. He denies loss of control of his bowel or bladder, no saddle anesthesias. Patient was just placed on OxyContin twice daily and takes oxycodone p.r.n. during the day. Patient's daughter is concerned as he is unsteady on his feet with these medications. Pt denies head strike. REVIEW OF SYSTEMS: A comprehensive 10 point review of systems is otherwise negative aside from elements mentioned in the history of present illness. Source: Patient Exam Limitations: No limitations - Personal History Current Tetanus/Diphtheria Vaccine: Yes - Medical/Surgical History Hx Asthma: No Hx Chronic Respiratory Disease: No Hx Diabetes: No Hx Cardiac Disease: No Hx Renal Disease: No Hx Cirrhosis: No Hx Alcoholism: No Hx HIV/AIDS: No Hx Splenectomy or Spleen Trauma: No Other PMH: 1. Prostate cancer in remission. 2. 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 3. Bilateral inguinal hernia repair. 4. Small bowel obstruction with bowel resection. 5. Glaucoma. 6. R rotator cuff injury. 7, prior T8 comp fx Aug 2013 - Social History Smoking Status: Former smoker - Physical Exam Exam: Physical Exam Gen: Alert and Oriented, NAD HEENT: PERRL, moist mucous membranes NECK: no meningismus CV: regular rate and regular rhythm PULM: CTAB, no wheezes ABDOMEN: soft, non tender to palpation, BS present BACK: Midline L-spine tenderness to palpation NEURO: Neurologically grossly intact, sensation intact, 2/4 deep tendon reflexes patellar and Achilles EXTREMITIES: normal appearing SKIN: no rash or break in skin on exposed skin PSYCH: answers questions appropriately. Constitutional: Initial Vital Signs Temperature (C) 36.5 C 05/02/17 10:29 Heart Rate 76 05/02/17 10:29 Respiratory Rate 16 05/02/17 10:29 Blood Pressure 136/81 H 05/02/17 10:29 O2 Sat (%) 93 05/02/17 10:29 O2 Delivery Mode Room Air Allergies/Adverse Reactions: bimatoprost [From Lumigan] Allergy (Verified 11/02/16 13:37) Other-Enter Comments diatrizoate meglumine [From Gastrografin] Allergy (Verified 12/16/14 10:24) diatrizoate sodium [From Gastrografin] Allergy (Verified 12/16/14 10:24) iodine Allergy (Verified 11/02/16 13:37) Swelling/neck,face,throat Penicillins Allergy (Verified 11/02/16 13:37) Rash Home Medications: Medication Instructions Recorded Aspirin [Aspirin 81mg (*)] 81 mg PO HS 05/14/16 Brimonidine/Timolol [Combigan (*)] 1 drops EACHEYE BID 05/14/16 Docusate Sodium [Colace 100 MG (*)] 100 mg PO TID 05/14/16 Herbals/Supplements -Info Only 1 ea PO DAILY 05/14/16 Ranitidine HCl [Zantac 75] 75 mg PO DAILY PRN 05/14/16 Carboxymethylcellulose 0.5% 1 drops EACHEYE QID 09/03/16 [Refresh Plus Drops 0.5%] Chlorpheniramine Maleate 4 mg PO DAILY PRN 09/03/16 [Aller-Chlor] C/E/Zn/Cu/OM3/DHA/EPA/LUT/ZEAX 1 each PO BID 11/02/16 [Preservision Areds 2 Softgel] Omeprazole 40 mg PO DAILY16 11/02/16 Sertraline HCl [Zoloft 25mg (*)] 25 mg PO DAILY 11/02/16 Tamsulosin HCl [Flomax 0.4 MG (*)] 0.4 mg PO HS 11/02/16 Fluorometholone [Fml Forte] 1 drop LEFTEYE Q48H 11/03/16 LORazepam [Ativan (*)] 1 mg PO HS tab 11/03/16 Latanoprost 0.005% [Xalatan 0.005% 1 drops LEFTEYE HS opht.btl 11/03/16 (*)] Cevimeline HCl [Evoxac] 30 mg PO TID 12/21/16 Lact Cmb2/S.thermophl/Bif Cmb1 1 each PO 1200 12/21/16 [Vsl#3 Cap (*)] Acetaminophen [Tylenol ES 500 mg 1,000 mg PO TID tab 12/25/16 (*)] Cholecalciferol Vit D3 [Vitamin D3 2,000 units PO DAILY each 12/25/16 2000 units tab (OTC)] Ibuprofen [Motrin (*)] 400 mg PO Q4HRS PRN #0 tab 12/25/16 Lidocaine 5% [Lidoderm 5% Patch 1 ea TD DAILY21 patch 12/25/16 (*)] Methocarbamol [Robaxin 750 mg (*)] 750 mg PO TID PRN #0 tab 12/25/16 Patch Removal 1 ea TD DAILY patch 12/25/16 Polyethylene Glycol 3350 [Miralax 17 gm PO DAILY PRN #0 pkt 12/25/16 17 gm (*)] Sennosides/Docusate Sodium 1 - 2 tab PO BID tab 12/25/16 [Senokot-S] oxyCODONE IR [Oxycodone Ir (*)] 5 - 10 mg PO Q4HRS PRN #0 tab 12/25/16 Medical Decision Making - Diagnostics Imaging Results: Imaging Impressions Lumbar Spine X-Ray 05/02/17 11:23 Impression: 1. New moderate compression fractures of L1 and L2 segments with mild compression left superior endplate of L3. 2. Underlying osteoporosis suspected. Consider DEXA scan at some point for documentation as clinically directed. 3. Stable mild to moderate compression superior endplate of T12 with vertebroplasty cement at T10 level. ED Course/Re-evaluation: Lumbar xray shows new compression fractures to L1 and L2. Pt's pain is not controlled. I have spoken with Dr. Combs with radiology and I have ordered a kyphoplasty which I think will be helpful for the patients pain. He will be admitted to the hospitalist. Pt is neurovascularly intact. Departure - Departure Disposition: [facility] Acute Clinical Impression: Compression fx, lumbar spine Qualifiers: Encounter type: initial encounter Fracture type: closed Condition: Good Referrals: UDAY CASTRO [Primary Care Provider] - As per Instructions
[2017-05-02] MEDS ORDERED: oxyCODONE IR 5 MG TAB PO ONE (12:33)
[2017-05-02] MEDS ORDERED: POLYETHYLENE GLYCOL 3350 17 GM PKT PO PRN ×2 (14:53→14:55)
[2017-05-02] MEDS ORDERED: PROMETHAZINE HCL 25 MG/ML INJ IVP PRN (14:53)
[2017-05-02] MEDS ORDERED: ONDANSETRON 4 MG/2 ML VIAL IVP PRN (14:53)
[2017-05-02] MEDS ORDERED: HYDROmorphONE/DILAUDID 1 MG/ML INJ IVP PRN (14:53)
[2017-05-02] MEDS ORDERED: BISACODYL 10 MG SUPP PR PRN (14:53)
[2017-05-02] MEDS ORDERED: ONDANSETRON DISINTEGRATING 4 MG TAB PO PRN (14:53)
[2017-05-02] MEDS ORDERED: ACETAMINOPHEN 325 MG TAB PO PRN (14:53)
[2017-05-02] MEDS ORDERED: MAGNESIUM HYDROXIDE 30 ML UDCUP PO PRN ×2 (14:53→14:55)
[2017-05-02] MEDS ORDERED: LACTULOSE 20 GM/30 ML UDCUP PO PRN (14:53)
[2017-05-02] MEDS ORDERED: NS 1,000 ML IV SCH (16:00)
--- NOTE | 2017-05-02 16:27 | PDGENHP ---
History and Physical - Chief Complaint back pain - History of Present Illness 86 yo M with PMH of compression fx, glaucoma, prostate CA, recurrent falls pw worsening back pain that has been present since a fall one week ago. He fell in the bathroom which he notes has been happening frequently recently. He is a bit worried that with as much pain as he was having that he is not safe at home because he is even more likely to fall. He has not had fever or chills, no weakness or numbness, no loss or change in bowel/bladder function. At the time of my evaluation he notes that his pain is essentially gone. History Information - Allergies/Home Medication List Allergies/Adverse Reactions: bimatoprost [From Lumigan] Allergy (Verified 11/02/16 13:37) Other-Enter Comments diatrizoate meglumine [From Gastrografin] Allergy (Verified 12/16/14 10:24) diatrizoate sodium [From Gastrografin] Allergy (Verified 12/16/14 10:24) iodine Allergy (Verified 11/02/16 13:37) Swelling/neck,face,throat Penicillins Allergy (Verified 11/02/16 13:37) Rash Home Medications: Aspirin [Aspirin 81mg (*)] 81 mg PO HS 05/14/16 [Last Taken 05/01/17] Brimonidine/Timolol [Combigan (*)] 1 drops EACHEYE BID 05/14/16 [Last Taken 03/10 21:00] Docusate Sodium [Colace 100 MG (*)] 100 mg PO TID 05/14/16 [Last Taken 05/01/17 21:00] Herbals/Supplements -Info Only 1 ea PO DAILY 05/14/16 [Last Taken 09/03/16] Ranitidine HCl [Zantac 75] 75 mg PO DAILY PRN 05/14/16 [Last Taken Unknown] Carboxymethylcellulose 0.5% [Refresh Plus Drops 0.5%] 1 drops EACHEYE QID [Last Taken 05/01/17] C/E/Zn/Cu/OM3/DHA/EPA/LUT/ZEAX [Preservision Areds 2 Softgel] 1 each PO BID 07/11 [Last Taken 05/01/17 21:00] Omeprazole 40 mg PO DAILY PRN 11/02/16 [Last Taken 05/01/17] Sertraline HCl [Zoloft 25mg (*)] 25 mg PO DAILY 11/02/16 [Last Taken 05/01/17] Tamsulosin HCl [Flomax 0.4 MG (*)] 0.4 mg PO HS 11/02/16 [Last Taken 05/01/17] Cevimeline HCl [Evoxac] 30 mg PO TID 12/21/16 [Last Taken 12/21/16] Lact Cmb2/S.thermophl/Bif Cmb1 [Vsl#3 Cap (*)] 1 each PO DAILY@12 12/21/16 [ Last Taken 05/01/17] Ergocalciferol [Vitamin D2 (*)] 50,000 unit PO Q7D 05/02/17 [Last Taken Unknown] LORazepam [Ativan (*)] 1 mg PO DAILY@00 PRN 05/02/17 [Last Taken Unknown] Magnesium Hydroxide [Milk of Magnesia] 30 ml PO DAILY PRN 05/02/17 [Last Taken Unknown] oxyCODONE HCL [Oxycontin] 10 mg PO BID 05/02/17 [Last Taken 05/02/17] I have personally reviewed and updated: family history, medical history, social history, surgical history - Past Medical History Additional medical history: Syncope, suspected to be arrhytmogenic in setting 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 Recurrent, unwitnessed falls. T8 compression fracture 09/10 w/ brace. Prostate CA w/ XRT/beads, not metastatic. SBO. Glaucoma. Bilat inguinal hernia. Rotator Cuff injury - Surgical History Reports: no pertinent surgical hx Additional surgical history: Bilateral hernia surgery - Family History Additional family history: Melanoma - Social History Smoking Status: Former smoker Alcohol Use: None Drug Use: None Additional social history: lives alone, independently, Review of Systems Review of Systems: ROS: 10pt was reviewed & negative except for what was stated in HPI & below Physical Exam Physical Exam: Temp Pulse Resp BP Pulse Ox 36.7 C 70 16 164/91 H 95 05/02/17 13:35 05/02/17 13:35 05/02/17 13:35 05/02/17 13:35 05/02/17 13:35 Constitutional: no apparent distress, appears nourished Eyes: PERRL, anicteric sclera Ears, Nose, Mouth, Throat: moist mucous membranes, hearing normal Cardiovascular: regular rate and rhythym, no murmur, rub, or gallop, systolic murmur Respiratory: no respiratory distress, no rales or rhonchi, clear to auscultation Gastrointestinal: normoactive bowel sounds, soft, non-tender abdomen, no palpable masses Skin: warm, normal color Musculoskeletal: full muscle strength, no muscle tenderness Neurologic: AAOx3, other (e/o cognitive decline) Psychiatric: interacting appropriately, not anxious Lab Data & Imaging Review Visualized and Interpreted imaging results: Yes Interpretation: moderate compression fx L1-L2 Assessment & Plan Assessment: Compression fx, lumbar spine (Acute) 86 yo M with hx of compression fx, frequent falls presenting with back pain and new compression fractures of L1/L2 # back pain: presumably due to new compression fractures as next. Per patient the pain has now essentially completely resolved, however it is noted that he is lying flat in bed and has not been up essentially since arrival in ER. Will have additional pain medications available as needed. # compression fractures: of L1/L2 and new, has benefited from kyphoplasty in the past and will ask IR to consider for kypho in am. Will start calcitonin for help with sxs management as well. # recurrent falls: patient notes this has been occurring for some time, and he feels more vulnerable to falling given current issues with pain. Will have pt/ ot evaluate and pending their assessment consider if he may require dc to snf versus home # glaucoma: will continue his usual eye drops # hx of prostate cancer: s/p XRT with beads, do not think this is actively contributing to his current presentation # dementia: suspected based on exam, patient with evidence of cognitive dysfunction on evaluation today but does seem relatively mild # dispo: observation status, given his rapid improvement in sxs suspect he will require < 48 hours stay for eval/mgmt of above Patient new to my care. Old records reviewed and summarized as above. Care plan reviewed with ER doctor.
[2017-05-02 17:24] LABS: % IMMATURE GRANULYOCYTES 0.9 % (0.0-1.1); ABSOLUTE IMMATURE GRANULOCYTES 0.09 10^3/uL (0.00-0.10); ADD DIFF? NO; ADD MORPH? NO; ADD SCAN? NO; ATYPICAL LYMPHOCYTE FLAG 0 (0-99); FRAGMENT RBC FLAG 0 (0-99); HEMATOCRIT 38.1 % (40.0-51.0); HEMOGLOBIN 13.1 g/dL (13.7-17.5); LEFT SHIFT FLG 0 (0-99); LIPEMIA HEMOLYSIS FLAG 90 (0-99); MEAN CELL HEMOGLOBIN 33.2 pg (27.9-34.1); MEAN CELL HEMOGLOBIN CONCENTR. 34.4 g/dL (32.4-36.7); MEAN CELL VOLUME 96.5 fL (81.5-99.8); MEAN PLATELET VOLUME 8.3 fL (8.7-11.7); PLATELET CLUMPS FLAG 0 (0-99); PLATELET COUNT 338 10^3/uL (150-400); RED BLOOD CELL COUNT 3.95 10^6/uL (4.40-6.38); RED CELL DISTRIBUTION WIDTH 13.1 % (11.5-15.2)
[2017-05-02 17:30] LABS: INR 1.07 (0.83-1.16); PROTIME(PATIENT) 13.8 SEC (12.0-15.0)
[2017-05-02 17:31] LABS: APTT 24.6 SEC (23.0-38.0)
[2017-05-02] MEDS: FLUOROMETHOLONE 0.1% LEFTEYE SCH (18:00)
[2017-05-02] MEDS: ACETAMINOPHEN 500 MG TAB PO SCH ×2 (18:11→21:00)
[2017-05-02] MEDS: DOCUSATE SODIUM 100 MG CAP PO SCH ×2 (18:11→21:00)
[2017-05-02] MEDS: CARBOXYMETHYLCELLULOSE 0.5% EACHEYE SCH ×2 (18:13→20:57)
[2017-05-02] MEDS: Cevimeline Hcl [Evoxac] 30 MG PO SCH ×2 (18:14→21:02)
[2017-05-02 18:15] LABS: ANION GAP 7 mEq/L (8-16); CALCIUM 9.4 mg/dL (8.5-10.4); CARBON DIOXIDE 27 mEq/l (22-31); CHLORIDE 98 mEq/L (97-110); GLOMERULAR FILTRATION RATE > 60; GLUCOSE 91 mg/dL (70-100); POTASSIUM 5.1 mEq/L (3.5-5.2); SODIUM 132 mEq/L (134-144)
[2017-05-02] MEDS: BRIMONIDINE/TIMOLOL 5 ML OPHT.BTL EACHEYE SCH (20:58)
[2017-05-02] MEDS: TAMSULOSIN HCL 0.4 MG CAP PO SCH (20:59)
[2017-05-02] MEDS: SENNOSIDES/DOCUSATE SODIUM TAB PO SCH (20:59)
[2017-05-02] MEDS: LORazepam 1 MG TAB PO SCH (20:59)
[2017-05-02] MEDS: PRESERVISION AREDS2 FORMULA EYE VIT 1 EACH PO SCH (21:00)
[2017-05-02] MEDS ORDERED: ASPIRIN 81 MG CHEWABLE TAB PO SCH (21:00)
[2017-05-03] MEDS ORDERED: LORazepam 1 MG TAB PO PRN
[2017-05-03] MEDS: LATANOPROST 0.005% 2.5 ML OPHT DROPS LEFTEYE SCH ×2 (02:40→20:38)
[2017-05-03] MEDS: LIDOCAINE 5% 1 EA PATCH TD SCH ×2 (02:40→20:30)
[2017-05-03] MEDS ORDERED: PANTOPRAZOLE SODIUM 40 MG TAB PO PRN (09:00)
[2017-05-03] MEDS: SERTRALINE HCL 25 MG TAB PO SCH (09:00)
[2017-05-03] MEDS: SENNOSIDES/DOCUSATE SODIUM TAB PO SCH ×2 (09:00→20:36)
[2017-05-03] MEDS: ACETAMINOPHEN 500 MG TAB PO SCH ×3 (09:00→22:46)
[2017-05-03] MEDS: DOCUSATE SODIUM 100 MG CAP PO SCH ×3 (09:00→22:46)
[2017-05-03] MEDS: PRESERVISION AREDS2 FORMULA EYE VIT 1 EACH PO SCH ×2 (09:01→17:58)
[2017-05-03] MEDS: BRIMONIDINE/TIMOLOL 5 ML OPHT.BTL EACHEYE SCH ×2 (09:03→20:37)
[2017-05-03] MEDS: CARBOXYMETHYLCELLULOSE 0.5% EACHEYE SCH ×4 (09:03→20:37)
[2017-05-03] MEDS: Cevimeline Hcl [Evoxac] 30 MG PO SCH ×3 (09:05→22:46)
[2017-05-03] MEDS ORDERED: LORazepam 0.5 MG TAB PO ONE (10:30)
[2017-05-03] MEDS: FAMOTIDINE 20 MG TAB PO PRN (10:55)
--- NOTE | 2017-05-03 13:10 | HOSPPROG ---
Hospitalist Progress Note Assessment/Plan: 86 yo M with hx of compression fx, frequent falls presenting with back pain and new compression fractures of L1/L2 # back pain: presumably due to new compression fractures as next. Per patient the pain has now essentially completely resolved, although he still does not feel safe walking or going back home. Continue prn pain medications. # compression fractures: of L1/L2 and new, has benefited from kyphoplasty in the past, plan for kypho on friday, calcitonin daily for sxs mgmt # recurrent falls: patient notes this has been occurring for some time, and he does not feel safe going home alone. Will have pt/ot evaluate and pending their assessment consider if he may require dc to snf versus home with home health # glaucoma: will continue his usual eye drops # hx of prostate cancer: s/p XRT with beads, do not think this is actively contributing to his current presentation # dementia: suspected based on exam, patient with evidence of cognitive dysfunction on evaluation today but does seem relatively mild # IP status, given continued fall risk patient is not safe to dc home alone Subjective: no acute overnight events, patient states pain is resolved but he does not feel safe going home and being alone at home, asked about snf and he is not sure he is willing to go to snf either Objective: Vital Signs Temp Pulse Resp BP Pulse Ox 36.3 C 67 17 178/93 H 96 05/03/17 11:54 05/03/17 11:54 05/03/17 11:54 05/03/17 11:54 05/03/17 11:54 Laboratory Results 05/02/17 17:12 05/02/17 17:12 05/02/17 05/03/17 05/04/17 05:59 05:59 05:59 Intake Total 1628 Output Total 150 225 Balance 1478 -225 PT 13.8 SEC (12.0-15.0) 05/02/17 17:12 INR 1.07 (0.83-1.16) 05/02/17 17:12 awake alert frail anicteric op clear rrr no mrg cta b soft nt nd no cce warm dry well perfused oriented appropriate ICD10 Worksheet Patient Problems: Problems Problem Status Onset Abdominal pain Acute Small bowel infarction Acute Syncope Acute Thoracic compression fracture Acute Compression fx, lumbar spine Acute
[2017-05-03] MEDS: VSL#3 1 EACH CAP PO SCH (13:28)
[2017-05-03] MEDS: oxyCODONE IR 5 MG TAB PO PRN (17:59)
[2017-05-03] MEDS: CALCITONIN 200 UNITS/SPRAY INH NS SCH (18:00)
[2017-05-03] MEDS: LORazepam 1 MG TAB PO SCH (20:33)
[2017-05-03] MEDS: TAMSULOSIN HCL 0.4 MG CAP PO SCH (20:35)
[2017-05-04] MEDS: CARBOXYMETHYLCELLULOSE 0.5% EACHEYE SCH ×4 (06:51→21:35)
[2017-05-04] MEDS: oxyCODONE IR 5 MG TAB PO PRN ×3 (06:53→16:23)
[2017-05-04] MEDS: PRESERVISION AREDS2 FORMULA EYE VIT 1 EACH PO SCH ×2 (09:09→21:33)
[2017-05-04] MEDS: CALCITONIN 200 UNITS/SPRAY INH NS SCH (09:25)
[2017-05-04] MEDS: SERTRALINE HCL 25 MG TAB PO SCH (09:26)
[2017-05-04] MEDS: ACETAMINOPHEN 500 MG TAB PO SCH ×3 (09:26→21:32)
[2017-05-04] MEDS: DOCUSATE SODIUM 100 MG CAP PO SCH ×3 (09:26→21:33)
[2017-05-04] MEDS: SENNOSIDES/DOCUSATE SODIUM TAB PO SCH ×2 (09:26→21:33)
[2017-05-04] MEDS: BRIMONIDINE/TIMOLOL 5 ML OPHT.BTL EACHEYE SCH ×2 (09:27→21:34)
[2017-05-04] MEDS: Cevimeline Hcl [Evoxac] 30 MG PO SCH ×3 (09:27→21:37)
--- NOTE | 2017-05-04 11:18 | HOSPPROG ---
Hospitalist Progress Note Assessment/Plan: 86 yo M with hx of compression fx, frequent falls presenting with back pain and new compression fractures of L1/L2 # back pain: presumably due to new compression fractures as next. Pain continues intermittently but at times is essentially non existent--worse with ambulation. Continue his home medication regimen with additional oxy IR for breakthrough pain. Family asking about addition of lyrical but explained we will wait until after kypho before beginning or changing another long acting pain med # compression fractures: of L1/L2 and new, has benefited from kyphoplasty in the past, plan for kypho on friday, calcitonin daily for sxs mgmt # recurrent falls: patient notes this has been occurring for some time, and he does not feel safe going home alone--he also states that he is not willing to go to snf. Tried to get a sense of what he wants after dc but he would rather wait until after the kypho--he is in touch with home hospice. # chronic pain with continuous narcotic use and dependency: continued on home pain regimen, additional oxy IR for breakthrough pain has been controlling his pain well thus far # glaucoma: will continue his usual eye drops # hx of prostate cancer: s/p XRT with beads, do not think this is actively contributing to his current presentation # dementia: suspected based on exam, patient with evidence of cognitive dysfunction on evaluation today but does seem relatively mild # IP status, given continued fall risk patient is not safe to dc home alone, PT/ OT/CM involved--likely can dc 05/05 after kypho if he still declines snf Subjective: no significant overnight events, up to bathroom today and able to get up independently with walker, pain worse after walking to bathroom Objective: Vital Signs Temp Pulse Resp BP Pulse Ox 36.6 C 78 17 173/86 H 94 05/04/17 07:33 05/04/17 07:33 05/04/17 07:33 05/04/17 07:33 05/04/17 07:33 05/03/17 05/04/17 05/05/17 05:59 05:59 05:59 Intake Total 500 Balance 500 PT 13.8 SEC (12.0-15.0) 05/02/17 17:12 INR 1.07 (0.83-1.16) 05/02/17 17:12 awake alert frail anicteric op clear rrr no mrg cta b soft nt nd no cce warm dry well perfused oriented appropriate - Pending Discharge Pending Discharge Within 24 Hours: Yes Pending Discharge Date: 05/05/17 Pending Discharge Time: 11:00 ICD10 Worksheet Patient Problems: Problems Problem Status Onset Compression fx, lumbar spine Acute Abdominal pain Acute Small bowel infarction Acute Syncope Acute Thoracic compression fracture Acute
[2017-05-04] MEDS: VSL#3 1 EACH CAP PO SCH (12:29)
[2017-05-04 12:41] LABS: ALBUMIN 3.6 g/dL (3.5-5.0)
[2017-05-04] MEDS: FLUOROMETHOLONE 0.1% LEFTEYE SCH (16:26)
--- NOTE | 2017-05-04 17:08 | ASMTCMCOM ---
CM Note CM Note Notes: [facility] here to see pt today. She said that currently pts weight is not correctly recorded in chart. It indicates he is 150 but he was 115 at last doctors report and this can make a difference if he is hospice eligible. Also hospice needed an albumin reading which they notified pts nurse Mounika about. They will call in on Friday to see results. Also spoke with PT who state that patient is not able to discharge today because he is unable to stand and is in considerable pain. Pt scheduled for kyphoplasty on 05/05/2017. C/M will continue to follow. Date Signed: 05/03/2017 11:00 AM Electronically Signed By:Antonieta Cortés
[2017-05-04] MEDS: LATANOPROST 0.005% 2.5 ML OPHT DROPS LEFTEYE SCH (21:33)
[2017-05-04] MEDS: LORazepam 1 MG TAB PO SCH (21:33)
[2017-05-04] MEDS: FAMOTIDINE 20 MG TAB PO PRN (21:33)
[2017-05-04] MEDS: LIDOCAINE 5% 1 EA PATCH TD SCH (21:35)
[2017-05-04] MEDS: TAMSULOSIN HCL 0.4 MG CAP PO SCH (21:36)
[2017-05-05] MEDS: CARBOXYMETHYLCELLULOSE 0.5% EACHEYE SCH ×4 (06:30→21:56)
[2017-05-05] MEDS: BRIMONIDINE/TIMOLOL 5 ML OPHT.BTL EACHEYE SCH ×2 (08:46→21:59)
[2017-05-05] MEDS ORDERED: CLINDAMYCIN 900 MG/DEXTROSE 50 ML IV ONE (09:00)
[2017-05-05] MEDS ORDERED: NS 1,000 ML IV ONE (09:00)
[2017-05-05] MEDS: Cevimeline Hcl [Evoxac] 30 MG PO SCH ×3 (09:03→20:50)
[2017-05-05] MEDS: CALCITONIN 200 UNITS/SPRAY INH NS SCH (09:05)
[2017-05-05] MEDS: ACETAMINOPHEN 500 MG TAB PO SCH ×3 (09:06→21:45)
[2017-05-05 10:43] LABS: INR 1.11 (0.83-1.16); PROTIME(PATIENT) 14.2 SEC (12.0-15.0)
[2017-05-05 10:44] LABS: APTT 27.5 SEC (23.0-38.0)
[2017-05-05 10:47] LABS: HEMATOCRIT 36.6 % (40.0-51.0); HEMOGLOBIN 12.1 g/dL (13.7-17.5); MEAN CELL HEMOGLOBIN 32.4 pg (27.9-34.1); MEAN CELL HEMOGLOBIN CONCENTR. 33.1 g/dL (32.4-36.7); MEAN CELL VOLUME 97.9 fL (81.5-99.8); RED BLOOD CELL COUNT 3.74 10^6/uL (4.40-6.38); RED CELL DISTRIBUTION WIDTH 13.6 % (11.5-15.2)
--- NOTE | 2017-05-05 10:51 | ASMTCMCOM ---
CM Note CM Note Notes: Spoke with Yamilka at [facility] hospice who states that Dr. French has approved patient for admission to hospice after returning home. Pt having kyphoplasty today and may d/c following procedure. C/M will follow. Date Signed: 05/05/2017 10:50 AM Electronically Signed By:Antonieta Cortés
[2017-05-05] MEDS ORDERED: ROCURONIUM 50 MG/5 ML VIAL ONE (11:41)
[2017-05-05] MEDS ORDERED: LIDOCAINE 2% 5 ML SDV ONE (11:41)
[2017-05-05] MEDS ORDERED: PROPOFOL 200 MG/20 ML VIAL ONE (11:42)
[2017-05-05] MEDS ORDERED: fentaNYL 100 MCG/2 ML INJ ONE (11:42)
[2017-05-05] MEDS ORDERED: DEXAMETHASONE 4 MG/ML VIAL ONE ×3 (11:49)
[2017-05-05] MEDS ORDERED: BUPIVACAINE 0.5% 30 ML SDV ONE (12:23)
[2017-05-05] MEDS ORDERED: SUGAMMADEX SODIUM 200 MG/2 ML VIAL IVP ONE (14:34)
[2017-05-05] MEDS ORDERED: ONDANSETRON 4 MG/2 ML VIAL ONE (14:36)
[2017-05-05] MEDS: SENNOSIDES/DOCUSATE SODIUM TAB PO SCH ×2 (15:47→18:47)
[2017-05-05] MEDS: SERTRALINE HCL 25 MG TAB PO SCH (15:48)
[2017-05-05] MEDS: DOCUSATE SODIUM 100 MG CAP PO SCH ×3 (15:48→18:47)
[2017-05-05] MEDS: PRESERVISION AREDS2 FORMULA EYE VIT 1 EACH PO SCH ×2 (15:48→18:47)
[2017-05-05] MEDS: VSL#3 1 EACH CAP PO SCH (16:30)
--- NOTE | 2017-05-05 17:16 | GDS ---
[f rep st] DISCHARGE SUMMARY ADDENDUM TO PREVIOUSLY DICTATED REPORT Initially, I thought the patient would be discharged on the ; however, his kyphoplasty procedure took longer than expected. Post procedure, he continued to have pain. On day of discharge, he tells me his pain is better. The family plans to take him home with hospice care. We did discuss [facility]; however, the patient would much prefer going home. PHYSICAL EXAM: VITAL SIGNS: On day of discharge, blood pressure 141/79, pulse of 96, respiratory rate 18, O2 saturation 90% on room air. GENERAL: No acute distress. MUSCULOSKELETAL: There is no saddle anesthesia. Muscle strength 5/5, bilateral lower extremity flexion, extension at the hip and at the foot. DISCHARGE MEDICATIONS: Please refer to discharge medication reconciliation in [facility]. FOLLOWUP: The patient will be discharged home with hospice care. He should follow up with his primary care provider in the next week or so for routine hospital followup. /[id number] 132[address] [facility] ORIGINAL REPORT ANTICIPATED DATE OF DISCHARGE: May 05, 2017 DISCHARGE DIAGNOSES: 1. Back pain with new L1, L2 compression fracture. 2. Recurrent falls. 3. Chronic pain with continuous narcotic dependency. 4. Glaucoma. 5. History of prostate cancer. 6. Dementia. CONSULTANTS: Interventional Radiology for kyphoplasty. HOSPITAL COURSE AND STAY BY PROBLEM: Acute on chronic back pain with L1, L2 compression fracture: The patient underwent MRI on 05/02/2017, which showed acute insufficiency fractures of L1, L2 and L3. The patient has continued to have severe pain with any kind of movement despite being on calcitonin nasally daily. He was taken for kyphoplasty on 05/05/2017. I saw the patient early this morning. He expressed interest in being discharged home after the procedure with Hospice. The patient is not currently back from procedure, but I do plan that he will go home later on today. PHYSICAL EXAM: VITAL SIGNS: On day of discharge, blood pressure 135/88, pulse of 67, respiratory rate 16, O2 saturation 95% on room air. GENERAL: No acute distress. HEART: S1, S2. LUNGS: Clear. MUSCULOSKELETAL: There is no saddle anesthesia. No lower extremity weakness. PERTINENT LABS AND STUDIES DONE THIS HOSPITAL STAY: A lumbar spine MRI done 09/ 03/2017, refer to report. DISCHARGE MEDICATIONS: Please refer to discharge medication reconciliation in [facility] for details. DISCHARGE INSTRUCTIONS: The patient will be discharged home with Hospice. /[id number]/MODL and [id number], 05/06/17 132[facility]
[2017-05-05] MEDS: TAMSULOSIN HCL 0.4 MG CAP PO SCH (18:48)
--- NOTE | 2017-05-05 19:26 | POSTOPPROG ---
Post Op Note Date of Operation: 05/05/17 Surgeon: Mike Combs [employer] Professor: Rosa Maria Sanchez Anesthesia: GET(General Endotracheal) Pre-op Diagnosis: Compression fx Post-op Diagnosis: Same Indication: Pain Procedure: L1, L2, and L3 kyphoplasty Findings: See report Inf/Abcess present in the surg proc area at time of surgery?: No Depth: Organ Space (Spine) EBL: Minimal Complications: No immediate
[2017-05-05] MEDS: LORazepam 1 MG TAB PO SCH (21:45)
[2017-05-05] MEDS: LATANOPROST 0.005% 2.5 ML OPHT DROPS LEFTEYE SCH (21:57)
[2017-05-05] MEDS: LIDOCAINE 5% 1 EA PATCH TD SCH (21:58)
[2017-05-06] MEDS: CARBOXYMETHYLCELLULOSE 0.5% EACHEYE SCH ×2 (05:03→12:23)
[2017-05-06] MEDS: PRESERVISION AREDS2 FORMULA EYE VIT 1 EACH PO SCH (08:26)
[2017-05-06] MEDS: DOCUSATE SODIUM 100 MG CAP PO SCH (08:27)
[2017-05-06] MEDS: SENNOSIDES/DOCUSATE SODIUM TAB PO SCH (08:27)
[2017-05-06] MEDS: SERTRALINE HCL 25 MG TAB PO SCH (08:27)
[2017-05-06] MEDS: ACETAMINOPHEN 500 MG TAB PO SCH (08:27)
[2017-05-06] MEDS: Cevimeline Hcl [Evoxac] 30 MG PO SCH (08:28)
[2017-05-06] MEDS: CALCITONIN 200 UNITS/SPRAY INH NS SCH (08:28)
[2017-05-06] MEDS: BRIMONIDINE/TIMOLOL 5 ML OPHT.BTL EACHEYE SCH (08:29)
--- NOTE | 2017-05-06 09:00 | SOAPPROG ---
SOAP Progress Note Assessment/Plan: Assessment: 86 yo M w h/o glacuoma, prostate cancer, chronic pain and compression fractures of L1, L2 and L3 s/p kyphoplasty 1 day ago. Since yesterday, he has been up several times to go to the bathroom and says that his back pain is greatly improved. He still requires some pain control, but says he feels closer to his baseline. He is deconditioned and has ongoing difficulty caring for himself, and is still a fall risk. He was recently approved for hospice care. Plan/recs: 1. No new recs from an IR standpoint. IR signing off. 2. Would benefit from home-health and/or rehabilitation. Unclear how this fits in with hospice care. Thank you for the opportunity to assist in the care of Mr. Ledezma. Please don' t hesitate to contact IR with questions or concerns. 05/06/17 08:57 05/06/17 20:33 Subjective: Pt seen and examined this am. Pain is improved. Feels more clear headed than he did yesterday. Able to go to the bathroom without difficulty. Objective: Vital Signs Temp Pulse Resp BP Pulse Ox 36.7 C 78 16 148/81 H 93 05/06/17 04:00 05/06/17 04:00 05/06/17 04:00 05/06/17 04:00 05/06/17 04:00 Laboratory Results 05/05/17 10:10 05/05/17 05/06/17 05/07/17 05:59 05:59 05:59 Intake Total 800 1700 Output Total 150 1125 Balance 650 575 PT 14.2 SEC (12.0-15.0) 05/05/17 10:10 INR 1.11 (0.83-1.16) 05/05/17 10:10 Gen: Elderly, frail, NAD Heart: RRR Lungs: Normal effort, equal excursions Abd: NTND MSK: No CCE Neuro: Gross nonfocal, hand voice writing reporter and plantarflexion strength 5/5 bilat ICD10 Worksheet Patient Problems: Problems Problem Status Onset Abdominal pain Acute Compression fx, lumbar spine Acute Small bowel infarction Acute Syncope Acute Thoracic compression fracture Acute
[2017-05-06 09:25] VITALS: BP 141/79; PULSE 96; RESP 18; TEMP 98.2; O2SAT 90
[2017-05-06] MEDS: VSL#3 1 EACH CAP PO SCH (13:04)
--- NOTE | 2017-05-06 13:27 | PDIAF ---
- Diagnosis Diagnosis: lumbar compression fracture Code Status: Do Not Resuscitate - Medication Management Discharge Medications: Medications to Continue on Transfer Aspirin [Aspirin 81mg (*)] 81 mg PO HS 05/14/16 [Last Taken 05/01/17] Brimonidine/Timolol [Combigan (*)] 1 drops EACHEYE BID 05/14/16 [Last Taken 03/10 21:00] Docusate Sodium [Colace 100 MG (*)] 100 mg PO TID 05/14/16 [Last Taken 05/01/17 21:00] Herbals/Supplements -Info Only 1 ea PO DAILY 05/14/16 [Last Taken 09/03/16] Ranitidine HCl [Zantac 75] 75 mg PO DAILY PRN 05/14/16 [Last Taken Unknown] Carboxymethylcellulose 0.5% [Refresh Plus Drops 0.5%] 1 drops EACHEYE QID [Last Taken 05/01/17] C/E/Zn/Cu/OM3/DHA/EPA/LUT/ZEAX [Preservision Areds 2 Softgel] 1 each PO BID 07/11 [Last Taken 05/01/17 21:00] Omeprazole 40 mg PO DAILY PRN 11/02/16 [Last Taken 05/01/17] Sertraline HCl [Zoloft 25mg (*)] 25 mg PO DAILY 11/02/16 [Last Taken 05/01/17] Tamsulosin HCl [Flomax 0.4 MG (*)] 0.4 mg PO HS 11/02/16 [Last Taken 05/01/17] Fluorometholone [Fml Forte] 1 drop LEFTEYE Q48H 11/03/16 [Last Taken 04/30/17] LORazepam [Ativan (*)] 1 mg PO HS tab 11/03/16 [Last Taken 05/01/17] Latanoprost 0.005% [Xalatan 0.005% (*)] 1 drops LEFTEYE HS opht.btl 11/03/16 [ Last Taken 05/01/17] Cevimeline HCl [Evoxac] 30 mg PO TID 12/21/16 [Last Taken 12/21/16] Lact Cmb2/S.thermophl/Bif Cmb1 [Vsl#3 Cap (*)] 1 each PO DAILY@12 12/21/16 [ Last Taken 05/01/17] Acetaminophen [Tylenol ES 500 mg (*)] 1,000 mg PO TID tab 12/25/16 [Last Taken 05/02/17] Ibuprofen [Motrin (*)] 400 mg PO Q4HRS PRN #0 tab 12/25/16 [Last Taken 05/01/17] Lidocaine 5% [Lidoderm 5% Patch (*)] 1 ea TD DAILY21 patch 12/25/16 [Last Taken 05/01/17] Polyethylene Glycol 3350 [Miralax 17 gm (*)] 17 gm PO DAILY PRN #0 pkt 12/25/16 [Last Taken Unknown] oxyCODONE IR [Oxycodone Ir (*)] 5 - 10 mg PO Q4HRS PRN #0 tab 12/25/16 [Last Taken Unknown] Ergocalciferol [Vitamin D2 (*)] 50,000 unit PO Q7D 05/02/17 [Last Taken Unknown] LORazepam [Ativan (*)] 1 mg PO DAILY@00 PRN 05/02/17 [Last Taken Unknown] Magnesium Hydroxide [Milk of Magnesia] 30 ml PO DAILY PRN 05/02/17 [Last Taken Unknown] oxyCODONE HCL [Oxycontin] 10 mg PO BID 05/02/17 [Last Taken 05/02/17] Discharge Medications: Refer to the Discharge Home Medication list for PRN reason. - Orders Services needed: Home Care, Registered Nurse Home Care Face to Face: I certify that this patient was under my care and that I had the required [id number] encounter meeting the encounter requirements on the discharge day. My findings support the fact that the patient is homebound as defined in CMS Chapter 7 Medicare Benefits Manual 30.1.1, The condition of the patient is such that there exists a normal inability to leave home and consequently, leaving home would require a considerable and taxing effort. Diet Recommendation: no restrictions on diet - Follow Up Care Current Providers and Referrals: UDAY CASTRO [Primary Care Provider] - As per Instructions
--- NOTE | 2017-05-06 14:20 | ASMTCMCOM ---
CM Note CM Note Notes: Pt discharging home with daughters. Patient to be seen on . 05/07/2017 at 10:00am scott Castaneda RN from [facility] for admissions meeting. Family notified and in agreement. Date Signed: 05/06/2017 02:19 PM Electronically Signed By:KIMBERLYN Weaver
== END 2017-05-06 14:37 | disposition hospice, home (50) | DRG 516 ==
LOC: EDUNIT# → INTOOBSV 12:32 → F1N 13:40 → OBSVTOIN 05-03 13:13
PROVIDERS: ADMIT Internal Medicine; ATTEND Internal Medicine
PROC: 0QU03JZ Supplement Lumbar Vertebra with Synthetic Substitute, Percutaneous Approach (ICD-10-PCS; principal; 2017-05-05 11:30)
PROC: 0QS03ZZ Reposition Lumbar Vertebra, Percutaneous Approach (ICD-10-PCS; principal; 2017-05-05 11:30)
DX: S32.010A Wedge compression fracture of first lumbar vertebra, initial encounter for closed fracture (principal); F11.20 Opioid dependence, uncomplicated; S32.020A Wedge compression fracture of second lumbar vertebra, initial encounter for closed fracture; G89.29 Other chronic pain; H40.9 Unspecified glaucoma; F03.90 Unspecified dementia, unspecified severity, without behavioral disturbance, psychotic disturbance, mood disturbance, and anxiety; Z85.46 Personal history of malignant neoplasm of prostate; W01.0XXA Fall on same level from slipping, tripping and stumbling without subsequent striking against object, initial encounter; Y92.012 Bathroom of single-family (private) house as the place of occurrence of the external cause; Z87.891 Personal history of nicotine dependence
CPT/HCPCS: 97162-GP; 97166-GO; 97530-GO; 97535-GO; G0378; G8978-GP-CJ; G8978-GP-CK; G8979-GP-CI; G8980-GP-CJ; G8987-GO-CI; G8988-GO-CI; G8989-GO-CI; J1100; J2405; J2704; J3010